=== PATIENT | female | born 1985 | race Caucasian/White ===

== ENCOUNTER 2017-10-24 10:47 | Emergency (ER) | payer MEDICAID, SELFPAY ==
[2017-10-24 11:14] VITALS: BP 122/80; PULSE 84; RESP 20; TEMP 36.8; O2SAT 100; BMI 23.6
--- NOTE | 2017-10-24 11:20 | XR_ITS ---
XR chest 2V HISTORY: ITS.REASON: cough ORDERING PHYSICIAN: Jazmine Lewis PATIENT AGE: 32 years COMPARISON: None available FINDINGS: The cardiomediastinal silhouette and pulmonary vascularity are within normal limits. The lungs are clear without infiltrates, suspicious nodules, or pleural effusions. Surgical clips are present in both apices. No evidence of pneumothorax No acute bony abnormalities. IMPRESSION: No acute finding
--- NOTE | 2017-10-24 11:49 | HMH.EDUTC ---
[facility] – [place] Disposition Clinical Impression: Pleurisy Disposition: Home, Self-Care Condition on Discharge: Good Instructions: DI for Pleurisy, Pleurisy Additional Instructions: Drink plenty of fluids Vaporizer/humidifier may help with cough Take medication as prescribed FOllow up with family doctor Straight to ER if you begin to have any shortness of breath or any life threatening symptoms Prescriptions: Naproxen [Naprosyn 500mg tablet] 500 mg PO BID #20 tab Referrals: Benny Ward MD [Primary Care Provider] - Forms: Work/School Release Time of Disposition: 12:39 Medical Decision Making - Medical Records Medical records reviewed: Yes: I reviewed the patient's medical records. Vital Signs: 10/24/17 11:14 Temperature 98.2 F Temperature Source Oral Pulse Rate [Right] 84 Respiratory Rate 20 Blood Pressure [Right Arm] 122/80 Blood Pressure Mean [Right Arm] 94 Blood Pressure Source [Right Arm] Automatic Cuff Blood Pressure Position [Right Arm] Sitting 02 Sat by Pulse Oximetry 100 Oxygen Delivery Method Room Air - Lab Data Lab results reviewed: Yes: I reviewed the patient's lab results. - Radiology Data #1 Image(s): Chest Image Reviewed: Yes I reviewed the patient's radiology results, Yes I have reviewed radiologist's interpretation Preliminary Findings: Normal/NAD - Jhonathan Inquiry Pt receiving controlled substance: No Jhonathan was queried for this patient: No - Reevaluation(s) Time: 11:56 Reevaluation #1: Contacted xray to have radiologist read xray [facility] [place] HPI - General Stated complaint: back pain when breathing cough Mode of Arrival: Ambulatory Source of Information: Patient Limitations: No Limitations Description of Symptoms (Recalled from Triage Doc. by RN): pains when taking deep breath in back, cough HEENT Symptoms (Recalled from RN notes): No Resp Symptoms (Recalled from RN notes): Yes (cough, painful inspiration) Skin Symptoms (Recalled from RN notes): No MS Symptoms (Recalled from RN notes): No Functional Status (Recalled from RN notes): na - History of Present Illness Provider Complaint: Patient states that she has been having pain in her back area that radiates down her back after she a deep breath State that she has had pleurisy in the past and it feels alot like that did when it started State that she also had a history of 2 lung colapse so she is more prone to infections so she comes in to get checked out - Related Data Home Medications Medication Instructions Recorded Confirmed Escitalopram Oxalate [Lexapro] 20 mg PO DAILY 10/24/17 10/24/17 Ferrous Sulfate [Ferrous Sulfate 325 mg PO DAILY 10/24/17 10/24/17 325mg Tablet] Previous Rx's Medication Instructions Recorded Naproxen [Naprosyn 500mg tablet] 500 mg PO BID #20 tab 10/24/17 Allergies Allergy/AdvReac Type Severity Reaction Status Date / Time NO KNOWN ALLERGIES Allergy Mild Uncoded 10/24/17 11:21 - Worker's Comp Is this a Worker's Comp case?: No Is this an [facility] Worker's Comp?: No Is this a [facility] Worker's Comp?: No [facility] History I have reviewed the patient's past medical history: Yes Medical History: Denies:: Cancer, Diabetes Mellitus Type 1, Diabetes Mellitus Type 2, MRSA Amputation: No Fractures: No - Social History Educational Level: Completed College Smoking Status: Never smoker Alcohol Intake: never - Psychiatric History Expresses thoughts of harming self/others: None Suicide Plan Description: No Plan ROS Obtained: Yes All systems reviewed & no additional complaints - Respiratory Respiratory: Yes cough, No dyspnea, Yes pain with cough, No wheezing Physical Exam - General General appearance: alert, in no apparent distress - Chest Chest inspection: Present: normal inspection, symmetric chest wall rise. Absent: tenderness - Respiratory Respiratory exam: Present: normal lung sounds bilaterally. Absent: respiratory distress, wheezes - Cardiovascular Car
--- NOTE | 2017-10-24 11:53 | ED_ITS ---
[facility] [place] Disposition Clinical Impression: Pleurisy Disposition: Home, Self-Care Condition on Discharge: Good Instructions: DI for Pleurisy, Pleurisy Additional Instructions: Drink plenty of fluids Vaporizer/humidifier may help with cough Take medication as prescribed FOllow up with family doctor Straight to ER if you begin to have any shortness of breath or any life threatening symptoms Prescriptions: Naproxen [Naprosyn 500mg tablet] 500 mg PO BID #20 tab Referrals: Benny Ward MD [Primary Care Provider] - Forms: Work/School Release Time of Disposition: 12:39 Medical Decision Making - Medical Records Medical records reviewed: Yes: I reviewed the patient's medical records. Vital Signs: 10/24/17 11:14 Temperature 98.2 F Temperature Source Oral Pulse Rate [Right] 84 Respiratory Rate 20 Blood Pressure [Right Arm] 122/80 Blood Pressure Mean [Right Arm] 94 Blood Pressure Source [Right Arm] Automatic Cuff Blood Pressure Position [Right Arm] Sitting 02 Sat by Pulse Oximetry 100 Oxygen Delivery Method Room Air - Lab Data Lab results reviewed: Yes: I reviewed the patient's lab results. - Radiology Data #1 Image(s): Chest Image Reviewed: Yes I reviewed the patient's radiology results, Yes I have reviewed radiologist's interpretation Preliminary Findings: Normal/NAD - Jhonathan Inquiry Pt receiving controlled substance: No Jhonathan was queried for this patient: No - Reevaluation(s) Time: 11:56 Reevaluation #1: Contacted xray to have radiologist read xray [facility] [place] HPI - General Stated complaint: back pain when breathing cough Mode of Arrival: Ambulatory Source of Information: Patient Limitations: No Limitations Description of Symptoms (Recalled from Triage Doc. by RN): pains when taking deep breath in back, cough HEENT Symptoms (Recalled from RN notes): No Resp Symptoms (Recalled from RN notes): Yes (cough, painful inspiration) Skin Symptoms (Recalled from RN notes): No MS Symptoms (Recalled from RN notes): No Functional Status (Recalled from RN notes): na - History of Present Illness Provider Complaint: Patient states that she has been having pain in her back area that radiates down her back after she a deep breath State that she has had pleurisy in the past and it feels alot like that did when it started State that she also had a history of 2 lung colapse so she is more prone to infections so she comes in to get checked out - Related Data Home Medications Medication Instructions Recorded Confirmed Escitalopram Oxalate [Lexapro] 20 mg PO DAILY 10/24/17 10/24/17 Ferrous Sulfate [Ferrous Sulfate 325 mg PO DAILY 10/24/17 10/24/17 325mg Tablet] Previous Rx's Medication Instructions Recorded Naproxen [Naprosyn 500mg tablet] 500 mg PO BID #20 tab 10/24/17 Allergies Allergy/AdvReac Type Severity Reaction Status Date / Time NO KNOWN ALLERGIES Allergy Mild Uncoded 10/24/17 11:21 - Worker's Comp Is this a Worker's Comp case?: No Is this an [facility] Worker's Comp?: No Is this a [facility] Worker's Comp?: No [facility] History I have reviewed the patient's past medical history: Yes Medical History: Denies:: Cancer, Diabetes Mellitus Type 1, Diabetes Mellitus Type 2, MRSA Amputation: No Fractures: No - Social History Educational Level: C
[2017-10-24 12:46] VITALS: BP 122/80; PULSE 88; RESP 20; TEMP 36.7; O2SAT 99
== END 2017-10-24 12:47 | disposition home or self-care (01) ==
PROVIDERS: Emergency Provider Nurse Practitioner; Family Provider Family Medicine; PCP Family Medicine
DX: R09.1 Pleurisy (principal); Z79.899 Other long term (current) drug therapy
CPT/HCPCS: 71046; 99202

== ENCOUNTER → 2018-08-06 20:38 | Outpatient (CLI) | payer BC, SELFPAY | PROVIDERS: Visit Provider Nurse Practitioner Family | DX: J02.9 Acute pharyngitis, unspecified (principal) ==

== ENCOUNTER → 2018-12-02 08:14 | Outpatient (CLI) | payer BC, SELFPAY ==
--- NOTE | 2018-12-02 08:21 | US_ITS ---
US abdomen limited History:Recent episode of acute abdominal pain Ordering Physician:Osmany Gabriel MD Patient Age: 33 years Comparison:67, 70, 70 11/21/2018 Findings: Pancreas:Unremarkable. No obvious mass or abnormal fluid collection. No ductal dilatation Liver:No focal liver lesions demonstrated. Homogeneous but scattered slightly increased echogenicity consistent with fatty infiltration. No intrahepatic biliary ductal dilatation evident Right Kidney:Unremarkable. Normal size measuring 12.0 x 4.1 x 6.1 cm and appearing sonographically normal. Gallbladder: The gallbladder is normal size and there are multiple calcified and partially calcified gallstones layering along the wall mixed with biliary sludge. The common bile duct measures 2 mm. Impression: Obvious cholelithiasis with biliary sludge, scattered diffuse areas of fatty filtration of the liver
== END ==
PROVIDERS: PCP Family Medicine; Visit Provider Family Medicine
DX: R10.11 Right upper quadrant pain (principal); K82.9 Disease of gallbladder, unspecified
CPT/HCPCS: 76705

== ENCOUNTER → 2018-12-07 09:58 | Outpatient (CLI) | payer BC, SELFPAY ==
[2018-12-07 10:19] LABS: Basophils % 0.6 % (0.1-2.0); Eosinophils # 0.1 K/mm3 (0.0-0.4); Eosinophils % 1.1 % (0.1-12.0); Hematocrit 37.6 % (37.0-47.0); Hemoglobin 12.6 g/dL (12.2-16.2); Lymphocytes # 2.4 K/mm3 (0.7-4.5); Lymphocytes % 39.2 % (10-50); Mean Corpuscular HGB Conc 33.6 g/dL (31.8-35.4); Mean Corpuscular Hemoglobin 28.7 pg (27.0-31.2); Mean Corpuscular Volume 85.4 fl (81-99); Mean Platelet Volume 7.8 fl (7.4-10.4); Monocytes # 0.3 K/mm3 (0.1-1.0); Monocytes % 4.5 % (1.7-9.3); Neutrophils # 3.4 K/mm3 (1.8-7.8); Neutrophils % 54.7 % (37.0-80.0); Platelet Count 278 K/mm3 (142-424); Red Cell Distribution Width 13.2 % (11.5-17.5); White Blood Count 6.2 K/mm3 (4.8-10.8)
[2018-12-07 11:19] LABS: HCG Qualitative, Serum Negative (Negative)
[2018-12-07 11:27] LABS: Alanine Aminotransferase 21 U/L (12-78); Albumin Level 4.1 gm/dL (3.4-5.0); Alkaline Phosphatase 63 U/L (46-116); Aspartate Amino Transferase 10 U/L (15-37); Bilirubin,Total 0.3 mg/dL (0.2-1.0); Blood Urea Nitrogen 12 mg/dL (7-18); Calcium 9.3 mg/dL (8.5-10.1); Carbon Dioxide 24 mmol/L (21.0-32.0); Chloride 104 mmol/L (98-107); Creatinine,Serum 0.73 mg/dL (0.55-1.02); Estimated Glomerular Filt Rate 91 ml/min (>60); GFR (African American) 110 ML/MIN (>60); Glucose 94 mg/dL (74-106); Sodium 142 mmol/L (136-145); Total Protein,Serum 8.1 gm/dL (6.4-8.2)
== END ==
PROVIDERS: Visit Provider Surgery
DX: K81.9 Cholecystitis, unspecified (principal)
CPT/HCPCS: 36415; 80053; 84703; 85025

== ENCOUNTER 2021-06-19 09:19 | Emergency (ER) | payer OTHER, SELFPAY ==
[2021-06-19 09:39] VITALS: BP 136/89; PULSE 98; RESP 14; TEMP 36.7; O2SAT 96; BMI 28.7
--- NOTE | 2021-06-19 09:52 | HMH.EDUTC ---
[facility] [place] Clinical Impression: Pharyngitis Qualifiers: Pharyngitis/tonsillitis etiology: unspecified etiology Qualified Code(s): J02.9 - Acute pharyngitis, unspecified Disposition: Home, Self-Care Condition on Discharge: Good Instructions: Strep Throat, DI for Pharyngitis/Tonsillopharyngitis -- Adult Additional Instructions: Drink plenty of fluids. Take tylenol or ibuprofen for pain or fever. Take the medications as directed. Follow up with your regular doctor. GO TO THE ER FOR ANY WORSENING SYMPTOMS Quarantine until you know the results of your covid-19 test. If it is positive, the health department should call you and give you further instructions about your length of Quarantine and other things. Notify your school or workplace of your results and follow their instructions regarding return to work/school. Prescriptions: Brompheniramine/Pseudoephed/Dm [Bromfed Dm Cough Syrup] 5 ml PO Q6HP PRN #240 ml PRN Reason: Cough Transmission Status: Received by [id number] predniSONE [Deltasone 10mg tablet] 10 mg PO BID 3 Days #6 tab Transmission Status: Received by [id number] Azithromycin [Z-Yury 250mg Tab*] 250 mg PO UD DOSE PK #6 tab Transmission Status: Received by [facility] Referrals: Benny Ward MD [Primary Care Provider] - Forms: Work/School Release Time of Disposition: 10:13 Medical Decision Making - Medical Records Medical records reviewed: No: I reviewed the patient's medical records. - Jhonathan Inquiry Pt receiving controlled substance: No Vital Signs: 06/19/21 09:39 06/19/21 10:30 Temperature 98.1 F 98.1 F Temperature Source Oral Pulse Rate 98 H Pulse Rate [Left] 98 H Respiratory Rate 14 16 Blood Pressure 136/89 Blood Pressure [Right Arm] 136/89 Blood Pressure Mean [Right Arm] 104 02 Sat by Pulse Oximetry 96 - Lab Data Lab results reviewed: Yes: I reviewed the patient's lab results. Lab Results 06/19/21 09:43: Strep Scn Rapid Clinic Negative 06/19/21 10:25: Chlamy pneumoniae PCR Not detected, Adenovirus (PCR) Not detected, B. pertussis DNA (PCR) Not detected, Coronavirus OC43 (PCR) Not detected, Coronavirus HKU1 (PCR) Not detected, Coronavirus 229E (PCR) Not detected, SARS-CoV-2 (PCR) Not detected, Coronavirus NL63 (PCR) Not detected, Human Metapneumovir PCR Not detected, Influenza A (H1) PCR Not detected, Influ A (H1N1/09) PCR Not detected, Influenza A (H3) PCR Not detected, Influenza Type A (PCR) Not detected, Influenza Type B (PCR) Not detected, M. pneumoniae (PCR) Not detected, Parainfluenza 1 (PCR) Not detected, Parainfluenza 2 (PCR) Not detected, Parainfluenza 3 (PCR) Not detected, Parainfluenza 4 (PCR) Not detected, RSV (PCR) Not detected, Entero/Rhino (PCR) Not detected Orders (Tests/Meds): ORDERS Category Date Time Status Strep Screen Confirmation Stat Micro 06/19/21 09:43 Received [facility] [place]PI - General Stated complaint: possible strep Time Seen by Provider: 06/19/21 09:52 Mode of Arrival: Ambulatory Source of Information: Patient Limitations: No Limitations Description of Symptoms (Recalled from Triage Doc. by RN): pt c/o sore throat and white spots on her throat since yesterday. HEENT Symptoms (Recalled from RN notes): Yes (sore throat) Resp Symptoms (Recalled from RN notes): No Skin Symptoms (Recalled from RN notes): No MS Symptoms (Recalled from RN notes): No Functional Status (Recalled from RN notes): na - History of Present Illness Provider Complaint: She c/o sore throat for the past 2 days. She has blisters and white areas on her throat. - Related Data Home Medications Medication Instructions Recorded Confirmed alprazolam 0.25 mg tablet PO 08/19/19 04/24/21 duloxetine 60 mg capsule,delayed mg PO 08/19/19 04/24/21 release cholecalciferol (vitamin D3) 325 325 mcg PO cap 01/18/21 04/24/21 mcg (13,000 unit) capsule metronidazole 500 mg tablet 500 mg PO tab 04/24/21 04/24/21 Pre
[2021-06-19 10:03] LABS: UTC Strep Screen (Rapid) Negative (Negative)
[2021-06-19 10:30] VITALS: BP 136/89; PULSE 98; RESP 16; TEMP 36.7
[2021-06-19 10:40] LABS: Adenovirus,PCR Not Detected (NotDetected); Bordetella Pertussis Not Detected (NotDetected); Chlamydophila Pneumoniae, PCR Not Detected (NotDetected); Coronavirus 19, PCR Not Detected (NotDetected); Coronavirus 229E Not Detected (NotDetected); Coronavirus NL63 Not Detected (NotDetected); Coronavirus OC43 Not Detected (NotDetected); Coronovirus HKU1,PCR Not Detected (NotDetected); Human Metapneumovirus Not Detected (NotDetected); Influenza A, PCR Not Detected (NotDetected); Influenza AH1, 2009 Not Detected (NotDetected); Influenza AH1, PCR Not Detected (NotDetected); Influenza AH3,PCR Not Detected (NotDetected); Influenza B, PCR Not Detected (NotDetected); Mycoplasma Pneumoniae, PCR Not Detected (NotDetected); Parainfluenza 1, PCR Not Detected (NotDetected); Parainfluenza 2, PCR Not Detected (NotDetected); Parainfluenza 3, PCR Not Detected (NotDetected); Parainfluenza 4, PCR Not Detected (NotDetected); Respiratory Syncytial Virus Not Detected (NotDetected); Rhinovirus/Enterovirus Not Detected (NotDetected)
== END 2021-06-19 10:31 | disposition home or self-care (01) ==
PROVIDERS: Emergency Provider Nurse Practitioner Family; PCP Family Medicine
DX: J03.90 Acute tonsillitis, unspecified (principal); Z20.822 Contact with and (suspected) exposure to COVID-19
CPT/HCPCS: 87581; 87632; 87798; 87880; 99202; C9803; G0463; U0003; U0005

== ENCOUNTER → 2022-03-18 10:22 | Outpatient (CLI) | payer OTHER, SELFPAY ==
--- NOTE | 2022-03-18 10:29 | XR_ITS ---
FINAL REPORT CLINICAL HISTORY: RIGHT SIDED CHEST PAIN h/o spontaneous uri. pneumothorax surgery 20 years ago COMPARISON: November 21, 2018 FINDINGS: Two views of the chest were obtained. The heart size and pulmonary vascularity are within normal limits. The mediastinum is normal. No acute pulmonary abnormality is identified. There is no pneumothorax. Postoperative changes are seen in the upper thorax bilaterally. The bony thorax is intact. IMPRESSION: No active cardiopulmonary disease. Reviewed, Interpreted and Dictated by Dominic Barkley III, MD Transcribed by Piero Escobar Authenticated and [facility]
== END ==
PROVIDERS: PCP Family Medicine; Visit Provider Family Medicine
DX: R07.9 Chest pain, unspecified (principal)
CPT/HCPCS: 71046

== ENCOUNTER 2022-03-29 10:21 | Emergency (ER) | payer OTHER, SELFPAY ==
[2022-03-29 10:44] VITALS: BP 118/82; PULSE 109; RESP 17; TEMP 36.9; O2SAT 97; BMI 24.3
[2022-03-29 10:46] LABS: UTC Strep Screen (Rapid) Negative (Negative)
--- NOTE | 2022-03-29 10:47 | HMH.EDUTC ---
[facility] – [place] Disposition Clinical Impression: Viral syndrome, Exposure to COVID-19 virus Disposition: Home, Self-Care Condition on Discharge: Good Instructions: DI for Viral Syndrome, DI for COVID-19 (Suspected or Confirmed ), Preventing the Spread of Coronavirus Discharge Instructions Additional Instructions: Drink plenty of fluids. Take tylenol or ibuprofen for pain or fever. Take the medications as directed. Follow up with your regular doctor. GO TO THE ER FOR ANY WORSENING SYMPTOMS Quarantine until you know the results of your covid-19 test. Notify your school or workplace of your results and follow their instructions regarding return to work/school. Prescriptions: Ondansetron [Zofran 4mg ODT] 4 mg PO Q8HP PRN #12 tab PRN Reason: Nausea Transmission Status: Received by [facility] Benzonatate [Benzonatate 100mg cap] 100 mg PO TIDP PRN #30 cap PRN Reason: Cough Transmission Status: Received by [facility] Referrals: Osmany Gabriel MD [Primary Care Provider] - Forms: Work/School Release Time of Disposition: 11:02 Medical Decision Making - Medical Records Medical records reviewed: No: I reviewed the patient's medical records. - Jhonathan Inquiry Pt receiving controlled substance: No Vital Signs: 03/29/22 10:44 03/29/22 11:03 Temperature 98.5 F 98.5 F Temperature Source Oral Pulse Rate 89 Pulse Rate [Left] 109 H Respiratory Rate 17 17 Blood Pressure 118/82 Blood Pressure [Right Arm] 118/82 Blood Pressure Mean [Right Arm] 94 02 Sat by Pulse Oximetry 97 - Lab Data Lab Results 03/29/22 10:36: Chlamy pneumoniae PCR Not detected, Adenovirus (PCR) Not detected, B. pertussis DNA (PCR) Not detected, Coronavirus OC43 (PCR) Not detected, Coronavirus HKU1 (PCR) Not detected, Coronavirus 229E (PCR) Not detected, SARS-CoV-2 (PCR) Detected A, Coronavirus NL63 (PCR) Not detected, Human Metapneumovir PCR Not detected, Influenza A (H1) PCR Not detected, Influ A (H1N1/09) PCR Not detected, Influenza A (H3) PCR Not detected, Influenza Type A (PCR) Not detected, Influenza Type B (PCR) Not detected, M. pneumoniae (PCR) Not detected, Parainfluenza 1 (PCR) Not detected, Parainfluenza 2 (PCR) Not detected, Parainfluenza 3 (PCR) Not detected, Parainfluenza 4 (PCR) Not detected, RSV (PCR) Not detected, Entero/Rhino (PCR) Not detected 03/29/22 10:40: Strep Scn Rapid Clinic Negative Orders (Tests/Meds): ORDERS Category Date Time Status Strep Screen Confirmation Stat Micro 03/29/22 10:40 Received [facility] [place] HPI - General Stated complaint: body aches, sore throat Time Seen by Provider: 03/29/22 10:47 Mode of Arrival: Ambulatory Source of Information: Patient Limitations: No Limitations Description of Symptoms (Recalled from Triage Doc. by RN): patient comes in with complaints of body aches, sore throat, cough, runny/stuffy nose. symptoms began yesterday. HEENT Symptoms (Recalled from RN notes): Yes Resp Symptoms (Recalled from RN notes): Yes Skin Symptoms (Recalled from RN notes): No MS Symptoms (Recalled from RN notes): No Functional Status (Recalled from RN notes): n/a - History of Present Illness Provider Complaint: She states that for the past 2 days she has had worsening cough, chest congestion, body aches, chills, and malaise. She has had low grade fever also. - Related Data Home Medications Medication Instructions Recorded Confirmed alprazolam 0.25 mg tablet PO 08/19/19 12/25/21 duloxetine 60 mg capsule,delayed mg PO 08/19/19 12/25/21 release cholecalciferol (vitamin D3) 325 325 mcg PO cap 01/18/21 12/25/21 mcg (13,000 unit) capsule Previous Rx's Medication Instructions Recorded Benzonatate [Benzonatate 100mg 100 mg PO TIDP PRN #30 cap 03/29/22 cap] Ondansetron [Zofran 4mg ODT] 4 mg PO Q8HP PRN #12 tab 03/29/22 Allergies Allergy/AdvReac Type Severity Reaction Status Date / Time No Known Allergies Allergy Verified
[2022-03-29 11:03] VITALS: BP 118/82; PULSE 89; RESP 17; TEMP 36.9
[2022-03-29 11:05] LABS: Adenovirus,PCR Not Detected (NotDetected); Bordetella Pertussis Not Detected (NotDetected); Chlamydophila Pneumoniae, PCR Not Detected (NotDetected); Coronavirus 229E Not Detected (NotDetected); Coronavirus NL63 Not Detected (NotDetected); Coronavirus OC43 Not Detected (NotDetected); Coronovirus HKU1,PCR Not Detected (NotDetected); Human Metapneumovirus Not Detected (NotDetected); Influenza A, PCR Not Detected (NotDetected); Influenza AH1, 2009 Not Detected (NotDetected); Influenza AH1, PCR Not Detected (NotDetected); Influenza AH3,PCR Not Detected (NotDetected); Influenza B, PCR Not Detected (NotDetected); Mycoplasma Pneumoniae, PCR Not Detected (NotDetected); Parainfluenza 1, PCR Not Detected (NotDetected); Parainfluenza 2, PCR Not Detected (NotDetected); Parainfluenza 3, PCR Not Detected (NotDetected); Parainfluenza 4, PCR Not Detected (NotDetected); Respiratory Syncytial Virus Not Detected (NotDetected); Rhinovirus/Enterovirus Not Detected (NotDetected)
[2022-03-29 15:44] LABS: Coronavirus 19, PCR Detected (NotDetected)
== END 2022-03-29 11:04 | disposition home or self-care (01) ==
PROVIDERS: Emergency Provider Nurse Practitioner Family; PCP Family Medicine
DX: U07.1 COVID-19 (principal); B34.9 Viral infection, unspecified; J02.9 Acute pharyngitis, unspecified; R53.82 Chronic fatigue, unspecified; M79.10 Myalgia, unspecified site; F32.A Depression, unspecified; F41.9 Anxiety disorder, unspecified
CPT/HCPCS: 87581; 87632; 87798; 87880; 99213; C9803; G0463; U0003; U0005

== ENCOUNTER 2022-03-30 11:34 | Emergency (ER) | payer OTHER, SELFPAY ==
--- NOTE | 2022-03-30 11:38 | XR_ITS ---
PROCEDURE INFORMATION: Exam: XR Chest Exam date and time: 03/30/2022 11:39 AM Age: 36 years old Clinical indication: Cough and other: Covid positive; Additional info: Covid positive plus cough TECHNIQUE: Imaging protocol: Radiologic exam of the chest. Views: 2 views. COMPARISON: CR XR CHEST 2V 03/18/2022 10:38 AM, 11/04/2016 FINDINGS: Lungs: Postoperative changes in the region of both lung apices stable and unchanged since 11/04/2016. Pleural spaces: Unremarkable. No pleural effusion. No pneumothorax. Heart/Mediastinum: Unremarkable. No cardiomegaly. Bones/joints: Unremarkable. IMPRESSION: No evidence of acute cardiopulmonary disease.
[2022-03-30 11:58] VITALS: BP 144/99; PULSE 119; RESP 16; TEMP 37; O2SAT 99; BMI 24.3
--- NOTE | 2022-03-30 12:11 | HMH.EDUTC ---
[facility] Disposition Clinical Impression: COVID-19 Disposition: Home, Self-Care Condition on Discharge: Good Instructions: DI for COVID-19 (Suspected or Confirmed ), Preventing the Spread of Coronavirus Discharge Instructions Additional Instructions: Take the medications that you have. Follow up with your regular doctor. GO TO THE ER FOR WORSENING SYMTTOMS Referrals: Osmany Gabriel MD [Primary Care Provider] - Time of Disposition: 12:12 Medical Decision Making - Medical Records Medical records reviewed: No: I reviewed the patient's medical records. - Jhonathan Inquiry Pt receiving controlled substance: No Vital Signs: 03/30/22 11:58 03/30/22 12:19 Temperature 98.6 F 98.6 F Temperature Source Oral Pulse Rate 119 H Pulse Rate [Left] 119 H Respiratory Rate 16 16 Blood Pressure 144/99 H Blood Pressure [Right Arm] 144/99 H Blood Pressure Mean [Right Arm] 114 02 Sat by Pulse Oximetry 99 - Radiology Data #1 Image(s): Chest Image Reviewed: Yes I reviewed the patient's radiology image, Yes I have reviewed radiologist's interpretation Preliminary Findings: Normal/NAD, No Infiltrates Seen PROCEDURE INFORMATION: Exam: XR Chest Exam date and time: 03/30/2022 11:39 AM Age: 36 years old Clinical indication: Cough and other: Covid positive; Additional info: Covid positive plus cough TECHNIQUE: Imaging protocol: Radiologic exam of the chest. Views: 2 views. COMPARISON: CR XR CHEST 2V 03/18/2022 10:38 AM, 11/04/2016 FINDINGS: Lungs: Postoperative changes in the region of both lung apices stable and unchanged since 11/04/2016. Pleural spaces: Unremarkable. No pleural effusion. No pneumothorax. Heart/Mediastinum: Unremarkable. No cardiomegaly. Bones/joints: Unremarkable. IMPRESSION: No evidence of acute cardiopulmonary disease. [facility] HPI - General Stated complaint: covid pos, cough Time Seen by Provider: 03/30/22 12:00 Mode of Arrival: Ambulatory Source of Information: Patient Limitations: No Limitations Description of Symptoms (Recalled from Triage Doc. by RN): patient is covid positive. she was seen in [facility] yesterday for a test. patient here for chest xray to rule out pneumonia HEENT Symptoms (Recalled from RN notes): No Resp Symptoms (Recalled from RN notes): Yes Skin Symptoms (Recalled from RN notes): No MS Symptoms (Recalled from RN notes): No Functional Status (Recalled from RN notes): n/a - History of Present Illness Provider Complaint: She tested positive for covid-19 yesterday. Her pcp wanted her to have a chest x-ray today. - Related Data Home Medications Medication Instructions Recorded Confirmed alprazolam 0.25 mg tablet PO 08/19/19 12/25/21 duloxetine 60 mg capsule,delayed mg PO 08/19/19 12/25/21 release cholecalciferol (vitamin D3) 325 325 mcg PO cap 01/18/21 12/25/21 mcg (13,000 unit) capsule Previous Rx's Medication Instructions Recorded Benzonatate [Benzonatate 100mg 100 mg PO TIDP PRN #30 cap 03/29/22 cap] Ondansetron [Zofran 4mg ODT] 4 mg PO Q8HP PRN #12 tab 03/29/22 Allergies Allergy/AdvReac Type Severity Reaction Status Date / Time No Known Allergies Allergy Verified 03/30/22 12:00 - Worker's Comp Is this a Worker's Comp case?: No [facility] History - Hepatitis A Screen Attestation statement:: This patient has been screened for Hepatitis A risk factors. I have reviewed the patient's past medical history: Yes Medical History: Reports:: Anxiety, Depression Denies:: Cancer, Diabetes Mellitus Type 1, Diabetes Mellitus Type 2, Internal Pacemaker, MRSA, Seizures Other Medical History: Denies: Blood Transfusion Reaction Other Surgeries: Yes: Cholecystectomy, , Hernia Repair, Other. No: Pacemaker Amputation: No Fractures: No Comment: Spontaneous pneumothorax, liposuction - Social History Smoking Status: Never smok
[2022-03-30 12:19] VITALS: BP 144/99; PULSE 119; RESP 16; TEMP 37
== END 2022-03-30 12:20 | disposition home or self-care (01) ==
PROVIDERS: Emergency Provider Nurse Practitioner Family; PCP Family Medicine
DX: U07.1 COVID-19 (principal)
CPT/HCPCS: 71046; 99283

== ENCOUNTER 2022-05-30 18:20 | Emergency (ER) | payer OTHER, SELFPAY ==
[2022-05-30 18:21] VITALS: BP 135/92; PULSE 115; RESP 18; TEMP 37.2; O2SAT 98; BMI 25.1
[2022-05-30 19:02] LABS: UTC Strep Screen (Rapid) Negative (Negative)
--- NOTE | 2022-05-30 19:03 | EXP.UTC ---
Discharge Plan Disposition Patient Disposition: Home, Self-Care Condition: Good Prescriptions Prescriptions: New azithromycin [Zithromax] 250 mg tablet 250 mg PO UD DOSE PK Qty: 6 0RF Rx Instructions: Take two (2) tablets today, then one (1) tablet days #2 thru #5 methylprednisolone 4 mg Tablets,Dose Pack 4 mg PO DIRECTED Qty: 21 0RF No Action alprazolam 0.25 mg tablet PO duloxetine 60 mg capsule,delayed release(DR/EC) PO cholecalciferol (vitamin D3) 325 mcg (13,000 unit) capsule 325 mcg PO Label Comments: TAKE 1 CAPSULE BY MOUTH THREE TIMES A WEEK benzonatate 100 MG capsule 100 mg PO TIDP PRN (Reason: Cough) Qty: 30 0RF ondansetron 4 MG tablet,disintegrating 4 mg PO Q8HP PRN (Reason: Nausea) Qty: 12 0RF Referrals Follow up/Referrals: Benny Ward MD [Primary Care Provider] - See instructions Activity Restrictions/Add. Instructions Additional Instructions/Restrictions: Drink plenty of fluids. Take tylenol or ibuprofen for pain or fever. Take the medications as directed. Follow up with your regular doctor. GO TO THE ER FOR ANY WORSENING SYMPTOMS Quarantine until you know the results of your covid-19 test. Notify your school or workplace of your results and follow their instructions regarding return to work/school. Clinical Impressions Clinical Impression: Strep throat Stand Alone Forms Stand Alone Forms: Work/School Release Instructions Patient Instructions: DI for Strep Throat Discharge ED Provider: Bandar Kay [facility] [place] General Stated complaint: sore throat, fever Mode of Arrival: Ambulatory Limitations: No Limitations Time Seen by Provider: 05/30/22 18:50 Description of Symptoms (Recalled from Triage Doc. by RN): SORE THROAT THAT STARTED YESTERDAY HEENT Symptoms (Recalled from RN notes): Yes Resp Symptoms (Recalled from RN notes): No Skin Symptoms (Recalled from RN notes): No MS Symptoms (Recalled from RN notes): No Functional Status (Recalled from RN notes): NA History of Present Illness Provider Complaint: She states that she has had a sore throat for the past 1 day. She has been exposed to multiple children that had strep throat. Related Data Home Medications Medication Instructions Recorded Confirmed alprazolam 0.25 mg tablet PO 08/19/19 12/25/21 duloxetine 60 mg capsule,delayed mg PO 08/19/19 12/25/21 release cholecalciferol (vitamin D3) 325 325 mcg PO 01/18/21 12/25/21 mcg (13,000 unit) capsule Previous Rx's Medication Instructions Recorded benzonatate 100 mg capsule 100 mg PO TIDP PRN Cough #30 caps 03/29/22 ondansetron 4 mg disintegrating 4 mg PO Q8HP PRN Nausea #12 tabs 03/29/22 tablet azithromycin 250 mg tablet 250 mg PO UD DOSE PK #6 tabs 05/30/22 (Zithromax) methylprednisolone 4 mg tablets in 4 mg PO DIRECTED #21 tabs 05/30/22 a dose pack Allergies Allergy/AdvReac Type Severity Reaction Status Date / Time No Known Allergies Allergy Verified 03/30/22 12:00 Worker's Comp Is this a Worker's Comp case?: No PFSH PFSH Social History Smoking Status: Never smoker alcohol intake: never substance use type: denies use current occupational status: employed Travel in the last 8 weeks: None household members: spouse housing: house current occupation: director of [employer] caffeine: Yes ROS Obtained: Yes All systems reviewed & no additional complaints except as documented Constitutional Constitutional: Reports chills and Reports fever(s) Eyes Eyes: Denies eye discharge ENT Ears, Nose, Mouth, and Throat: Reports as per HPI Cardiovascular Cardiovascular: Denies chest pain Respiratory Respiratory: Denies chest congestion and Reports cough Gastrointestinal Gastrointestingal: Reports nausea; Denies abdominal pain, constipation, cramping, diarrhea or vomiting Musculoskeletal Muscul
[2022-05-30 19:37] VITALS: BP 135/92; PULSE 115; RESP 18; TEMP 37.2; O2SAT 98
[2022-05-30 19:45] LABS: Adenovirus,PCR Not Detected (NotDetected); Bordetella Pertussis Not Detected (NotDetected); Chlamydophila Pneumoniae, PCR Not Detected (NotDetected); Coronavirus 19, PCR Not Detected (NotDetected); Coronavirus 229E Not Detected (NotDetected); Coronavirus NL63 Not Detected (NotDetected); Coronavirus OC43 Not Detected (NotDetected); Coronovirus HKU1,PCR Not Detected (NotDetected); Human Metapneumovirus Not Detected (NotDetected); Influenza A, PCR Not Detected (NotDetected); Influenza AH1, 2009 Not Detected (NotDetected); Influenza AH1, PCR Not Detected (NotDetected); Influenza AH3,PCR Not Detected (NotDetected); Influenza B, PCR Not Detected (NotDetected); Mycoplasma Pneumoniae, PCR Not Detected (NotDetected); Parainfluenza 1, PCR Not Detected (NotDetected); Parainfluenza 2, PCR Not Detected (NotDetected); Parainfluenza 3, PCR Not Detected (NotDetected); Parainfluenza 4, PCR Not Detected (NotDetected); Respiratory Syncytial Virus Not Detected (NotDetected); Rhinovirus/Enterovirus Not Detected (NotDetected)
== END 2022-05-30 19:38 | disposition home or self-care (01) ==
PROVIDERS: Emergency Provider Nurse Practitioner Family; PCP Family Medicine
DX: J02.0 Streptococcal pharyngitis (principal)
CPT/HCPCS: 87581; 87632; 87798; 87880; 99212; C9803; G0463; U0003; U0005

== ENCOUNTER → 2022-06-08 10:34 | Outpatient (CLI) | payer OTHER, SELFPAY | PROVIDERS: PCP Family Medicine; Visit Provider Nurse Practitioner Obstetrics & Gynecology | DX: S30.814A Abrasion of vagina and vulva, initial encounter (principal) | CPT/HCPCS: 36415; 86695; 86790 ==

== ENCOUNTER 2022-11-10 10:22 | Emergency (ER) | payer OTHER, SELFPAY ==
[2022-11-10 10:45] VITALS: BP 141/99; PULSE 104; RESP 20; TEMP 37; O2SAT 98; BMI 26.4
--- NOTE | 2022-11-10 11:03 | EXP.UTC ---
Discharge Plan Disposition Patient Disposition: Home, Self-Care Condition: Good Prescriptions Prescriptions: New amoxicillin [amoxicillin] 500 mg tablet 500 mg PO TID 10 Days Qty: 30 0RF kxhjlherzozigxj-amksmleik-QV [Bromfed DM] 2-30-10 mg/5 mL Syrup 5 ml PO Q6H PRN (Reason: Cough) Qty: 240 0RF prednisone 10 mg tablet 10 mg PO BID 3 Days Qty: 6 0RF No Action alprazolam 0.25 mg tablet 0.25 mg PO PRN cholecalciferol (vitamin D3) 325 mcg (13,000 unit) capsule 325 mcg PO DAILY Label Comments: TAKE 1 CAPSULE BY MOUTH THREE TIMES A WEEK duloxetine 60 mg capsule,delayed release(DR/EC) 120 mg PO DAILY Label Comments: TAKE 2 CAPSULES BY MOUTH ONCE DAILY Referrals Follow up/Referrals: Benny Ward MD [Primary Care Provider] - See instructions Activity Restrictions/Add. Instructions Additional Instructions/Restrictions: Drink plenty of fluids. Take tylenol or ibuprofen for pain or fever. Take the medications as directed. Follow up with your regular doctor. GO TO THE ER FOR ANY WORSENING SYMPTOMS Throw your tooth brush away and get a new one. Clinical Impressions Clinical Impression: Strep throat Stand Alone Forms Stand Alone Forms: Work/School Release Instructions Patient Instructions: DI for Strep Throat Discharge ED Provider: Bandar Kay [facility] General Stated complaint: sore throat, h/a, chills Time Seen by Provider: 11/10/22 11:01 Related Data Home Medications Medication Instructions Recorded Confirmed cholecalciferol (vitamin D3) 325 325 mcg PO DAILY . 01/18/21 11/10/22 mcg (13,000 unit) capsule alprazolam 0.25 mg tablet 0.25 mg PO PRN 06/07/22 09/10/22 duloxetine 60 mg capsule,delayed 120 mg PO DAILY Anxiety 11/10/22 11/10/22 release Previous Rx's Medication Instructions Recorded amoxicillin 500 mg tablet 500 mg PO TID 10 days #30 tabs 11/10/22 cojxttibyzeecsj-klzcjpqgttdltpt-XR 5 ml PO Q6H PRN Cough #240 mL 11/10/22 2 mg-30 mg-10 mg/5 mL oral syrup (Bromfed DM) prednisone 10 mg tablet 10 mg PO BID 3 days #6 tabs 11/10/22 Allergies Allergy/AdvReac Type Severity Reaction Status Date / Time No Known Allergies Allergy Verified 11/10/22 11:07 [facility] Disclaimer: The information contained in this section may have been updated after the patient was seen, as this information can be updated by other users. 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: Yes ROS Obtained: Yes All systems reviewed & no additional complaints except as documented Constitutional Constitutional: Reports chills and Reports fever(s) Eyes Eyes: Denies eye discharge ENT Ears, Nose, Mouth, and Throat: Reports as per HPI Cardiovascular Cardiovascular: Denies chest pain Respiratory Respiratory: Denies chest congestion and Reports cough Gastrointestinal Gastrointestingal: Reports nausea; Denies abdominal pain, constipation, cramping, diarrhea or vomiting Musculoskeletal Musculoskeletal: Denies arthralgias Integumentary/Breasts Skin/Breast: Denies rash Neurologic Neurologic: Denies paresthesias Physical Exam General General appearance: alert and in no apparent distress Head Head exam: atraumatic, normocephalic and normal inspection Eye Eye exam: Present normal appearance, PERRL and EOMI ENT ENT exam: Present mucous membranes moist and normal external ear exam Expanded EN
[2022-11-10 11:12] LABS: UTC Influenza A Antigen Negative (Negative); UTC Influenza B Antigen Negative (Negative)
[2022-11-10 11:13] LABS: UTC Strep Screen (Rapid) Positive (Negative)
[2022-11-10 12:09] VITALS: BP 141/99; PULSE 104; RESP 20; TEMP 37; O2SAT 98
== END 2022-11-10 12:09 | disposition home or self-care (01) ==
PROVIDERS: Emergency Provider Nurse Practitioner Family; PCP Family Medicine
DX: J02.0 Streptococcal pharyngitis (principal); R51.9 Headache, unspecified
CPT/HCPCS: 87804; 87880; 99212; 99214; G0463

== ENCOUNTER 2023-03-23 03:06 | Emergency (ER) | payer OTHER, SELFPAY ==
[2023-03-23 03:07] VITALS: BP 163/98; PULSE 107; RESP 16; TEMP 36.9; O2SAT 99; BMI 25.8
--- NOTE | 2023-03-23 03:17 | PC.NURSE ---
Dr. Richter at [facility]
[2023-03-23 03:26] LABS: Urine Pregnancy, HCG Qual. Negative (Negative)
--- NOTE | 2023-03-23 03:30 | HMH.EDGENADL ---
Discharge Plan Disposition Patient Disposition: Home, Self-Care Condition: Good Prescriptions Prescriptions: No Action alprazolam 0.25 mg tablet 0.25 mg PO PRN cholecalciferol (vitamin D3) 325 mcg (13,000 unit) capsule 325 mcg PO DAILY Patient Comments: TAKE 1 CAPSULE BY MOUTH THREE TIMES A WEEK L norgest/e.estradiol-e.estrad [Seasonique] 0.15 mg-30 mcg (84)/10 mcg (7) tablets,dose pack,3 month 1 tab PO DAILY Qty: 84 3RF nitrofurantoin monohyd/m-cryst [Macrobid] 100 mg capsule 100 mg PO BID Qty: 20 0RF Rx Instructions: must administer with a meal/food duloxetine 60 mg capsule,delayed release(DR/EC) 120 mg PO DAILY Patient Comments: TAKE 2 CAPSULES BY MOUTH ONCE DAILY Referrals Follow up/Referrals: Benny Ward MD [Primary Care Provider] - See instructions Activity Restrictions/Add. Instructions Additional Instructions/Restrictions: You were evaluated in the emergency department today. Please follow-up closely with your improvement director. They may recommend a medication change if you continue to have bleeding. This can be a normal side effect of starting control or changing control. Take ibuprofen as needed for dysfunctional bleeding and cramping every 6-8 hours. This can help slow the bleeding and cramping. Return to the emergency department for any new or worsening symptoms. Clinical Impressions Clinical Impression: Abnormal vaginal bleeding, Decidual cast Instructions Patient Instructions: DI for Vaginal Bleeding Discharge ED Provider: Sue Richter General Adult HPI General Chief complaint: Vaginal Bleeding Stated complaint: clotting blood Time Seen by Provider: 03/23/23 03:09 Mode of Arrival: Ambulatory Source of Information: Patient Limitations: No Limitations Description of Symptoms (Recalled from ER Triage Doc. by RN): pt states was put on control by lobster man 5 weeks ago to help with horomes. tonight pt when to the bathroom and when to wipe and had a blood clot. pt states it is time for her period . pt denies any abd pain or n/v/d. History of Present Illness HPI narrative: This patient is a 37-year-old female with a history of tubal ligation presenting to the emergency department with concern for passage of a large clot vaginally tonight. Patient reports that she was started on a new control pill approximately 5 weeks ago to help with hormone regulation because she was suffering from severe depression and mood changes with menstrual cycles. She states she had been having some cramping and bleeding for the last few days, but tonight she passed a very large clot. She is that she is currently supposed to be on her period, but her control pills are 3-month pack with placebo week at the very end of the 3-month period. She has not yet to the placebo week, as she is just finished her first month. She denies any fevers, chills, lightheadedness, chest pain, shortness of breath, lower abdominal pain, change in bowel movements, or other concerns. Related Data Home Medications Medication Instructions Recorded Confirmed cholecalciferol (vitamin D3) 325 325 mcg PO DAILY . 01/18/21 02/10/23 mcg (13,000 unit) capsule alprazolam 0.25 mg tablet 0.25 mg PO PRN 06/07/22 02/10/23 duloxetine 60 mg capsule,delayed 120 mg PO DAILY Anxiety 11/10/22 02/10/23 release Previous Rx's Medication Instructions Recorded L norgest/E estradiol-E estrad 1 tab PO DAILY #84 tabs 02/10/23 0.15 mg-30 mcg (84)/10 mcg(7) tabs,3mos (Seasonique) nitrofurantoin 100 mg PO BID #20 caps 03/12/23 monohydrate/macrocrystals 100 mg capsule (Macrobid) Allergies Allergy/AdvReac Type Severity Reaction Status Date / Time No Known Allergies Allergy Verified 02/10/23 13:23 [facility] Disclaimer: The information contained in this section may have been updated after the patient was seen, as this information can be updated by other users. Surgic
[2023-03-23 03:36] LABS: Basophils % 0.4 % (0.1-2.0); Eosinophils # 0.2 K/mm3 (0.0-0.4); Eosinophils % 2.1 % (0.1-12.0); Hematocrit 36.5 % (37.0-47.0); Hemoglobin 11.8 g/dL (12.2-16.2); Lymphocytes # 3.1 K/mm3 (0.7-4.5); Lymphocytes % 32.4 % (10-50); Mean Corpuscular HGB Conc 32.3 g/dL (31.8-35.4); Mean Corpuscular Hemoglobin 27.9 pg (27.0-31.2); Mean Corpuscular Volume 86.4 fl (81-99); Mean Platelet Volume 7.8 fl (7.4-10.4); Monocytes # 0.4 K/mm3 (0.1-1.0); Monocytes % 4.2 % (1.7-9.3); Neutrophils # 5.8 K/mm3 (1.8-7.8); Neutrophils % 60.9 % (37.0-80.0); Platelet Count 353 K/mm3 (142-424); Red Blood Count 4.23 M/mm3 (4.20-5.40); Red Cell Distribution Width 14.7 % (11.5-17.5); White Blood Count 9.5 K/mm3 (4.8-10.8)
[2023-03-23 03:40] LABS: Chloride 107 mmol/L (98-107)
[2023-03-23 03:41] LABS: Sodium 140 mmol/L (136-145)
[2023-03-23 03:44] LABS: Blood Urea Nitrogen 8 mg/dl (7-17); Calcium 9.1 mg/dl (8.4-10.2); Carbon Dioxide 21 mmol/L (22.0-30.0); Creatinine Clearance Estimated 139 mL/min (50-200); Estimated Glomerular Filt Rate 93 ml/min (>60); GFR (African American) 113 ML/MIN (>60); Glucose 110 mg/dl (74-100)
[2023-03-23 03:46] VITALS: BP 145/72; PULSE 89; RESP 16; TEMP 36.9; O2SAT 99
== END 2023-03-23 03:54 | disposition home or self-care (01) ==
PROVIDERS: Emergency Provider Emergency Medicine; PCP Family Medicine
DX: N93.9 Abnormal uterine and vaginal bleeding, unspecified (principal); F32.2 Major depressive disorder, single episode, severe without psychotic features
CPT/HCPCS: 80048; 81025; 85025; 99284

== ENCOUNTER → 2023-04-11 13:52 | Outpatient (CLI) | payer OTHER, SELFPAY ==
--- NOTE | 2023-04-11 13:52 | US_ITS ---
PROCEDURE: US TRANSVAGINAL CLINICAL INDICATION: abnormal uterine and vaginal bleeding COMPARISON: No exams were available for comparison FINDINGS: Transvaginal sonographic images of the pelvis were obtained UTERUS: 9.4 cm x 5.0 cmx 4.2 cm with a combined endometrial thickness of 17mm. There is section scar. LEFT OVARY: 9 cmxx1.8cm Within the left ovary is follicle measuring 1.6 cm x 1.4 cm x 1.5 cm RIGHT OVARY: 3.4 cmx 2.1 cmx2.3 cm with a volume of 8.6ml. There is a dominant follicle measuring 1.0 cm x 1.2 cm x 1.1 cm There are several follicles and the ovary has a polycystic appearance. Both ovaries are seen and appear normal. Doppler flow to both ovaries are seen. There is no fluid in the cul-de-sac. IMPRESSION: 1. Anteverted uterus upper limits of normal size. 2. The endometrium is thickened at 17 mm. 3. Both ovaries are seen and appear normal. They both have small follicles. The right ovary has a polycystic appearance. Dictated by: Gerald Smiley MD 04/13/2023 08:24 Gerald Smiley MD in OV 04/13/2023 08:24
== END ==
PROVIDERS: PCP Family Medicine; Visit Provider Nurse Practitioner Obstetrics & Gynecology
DX: N93.9 Abnormal uterine and vaginal bleeding, unspecified (principal)
CPT/HCPCS: 76830

== ENCOUNTER 2023-08-20 10:20 | Emergency (ER) | payer OTHER, SELFPAY ==
[2023-08-20 10:30] VITALS: BP 141/90; PULSE 89; RESP 19; TEMP 37.3; O2SAT 100; BMI 28.0
--- NOTE | 2023-08-20 10:35 | EXP.UTC ---
Discharge Plan Disposition Patient Disposition: Home, Self-Care Condition: Good Prescriptions Prescriptions: New prednisone 10 mg tablet 10 mg PO BID 5 Days Qty: 10 0RF amoxicillin [amoxicillin] 875 mg tablet 875 mg PO Q12H Qty: 20 0RF No Action cholecalciferol (vitamin D3) 325 mcg (13,000 unit) capsule 325 mcg PO DAILY Patient Comments: TAKE 1 CAPSULE BY MOUTH THREE TIMES A WEEK amlodipine 2.5 mg tablet 2.5 mg PO DAILY Patient Comments: TAKE 1 TABLET BY MOUTH ONCE DAILY FOR 90 DAYS duloxetine 60 mg capsule,delayed release(DR/EC) 120 mg PO DAILY Patient Comments: TAKE 2 CAPSULES BY MOUTH ONCE DAILY albuterol sulfate 90 mcg/actuation HFA aerosol inhaler See Rx Instructions .ROUTE .COMPLEX Patient Comments: INHALE 1 PUFF BY MOUTH EVERY 4 HOURS NEEDED Rx Instructions: INHALE 1 PUFF BY MOUTH EVERY 4 HOURS NEEDED ferrous sulfate 325 mg (65 mg iron) tablet,delayed release (DR/EC) 325 mg PO DAILY Patient Comments: TAKE 1 TABLET BY MOUTH ONCE DAILY Referrals Follow up/Referrals: Benny Ward MD [Primary Care Provider] - See instructions Activity Restrictions/Add. Instructions Additional Instructions/Restrictions: Drink plenty of fluids. Take tylenol or ibuprofen for pain or fever. Take the medications as directed. Follow up with your regular doctor. GO TO THE ER FOR ANY WORSENING SYMPTOMS Clinical Impressions Clinical Impression: Pharyngitis Stand Alone Forms Stand Alone Forms: Work/School Release Instructions Patient Instructions: Strep Throat, DI for Strep Throat Discharge ED Provider: Bandar Kay [facility] General Stated complaint: sore throat headache Time Seen by Provider: 08/20/23 10:35 History of Present Illness Provider Complaint: She states that for the past 1 day she has had sore throat, chills, and body aches. Her son was diagnosed with strep throat 3 days ago. Related Data Home Medications Medication Instructions Recorded Confirmed cholecalciferol (vitamin D3) 325 325 mcg PO DAILY . 01/18/21 08/20/23 mcg (13,000 unit) capsule duloxetine 60 mg capsule,delayed 120 mg PO DAILY Anxiety 11/10/22 08/20/23 release amlodipine 2.5 mg tablet 2.5 mg PO DAILY 04/21/23 08/20/23 albuterol sulfate 90 mcg/actuation See Rx Instructions .Route .COMPLEX 08/20/23 08/20/23 aerosol inhaler ferrous sulfate 325 mg (65 mg 325 mg PO DAILY 08/20/23 08/20/23 iron) tablet,delayed release Previous Rx's Medication Instructions Recorded amoxicillin 875 mg tablet 875 mg PO Q12H #20 tabs 08/20/23 prednisone 10 mg tablet 10 mg PO BID 5 days #10 tabs 08/20/23 Allergies Allergy/AdvReac Type Severity Reaction Status Date / Time No Known Allergies Allergy Verified 08/20/23 10:51 [facility] Disclaimer: The information contained in this section may have been updated after the patient was seen, as this information can be updated by other users. 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
[2023-08-20 10:56] LABS: UTC Strep Screen (Rapid) Negative (Negative)
[2023-08-20 11:05] VITALS: BP 141/90; PULSE 89; RESP 19; TEMP 37.3; O2SAT 100
== END 2023-08-20 10:55 | disposition home or self-care (01) ==
PROVIDERS: Emergency Provider Nurse Practitioner Family; PCP Family Medicine
DX: J02.9 Acute pharyngitis, unspecified (principal); R51.9 Headache, unspecified; R68.83 Chills (without fever); M79.18 Myalgia, other site; Z20.818 Contact with and (suspected) exposure to other bacterial communicable diseases
CPT/HCPCS: 87880; 99212; 99214; G0463

== ENCOUNTER 2023-09-02 09:12 | Outpatient (CLI) | payer OTHER, SELFPAY ==
[2023-09-02 09:33] LABS: Basophils % 0.4 % (0.1-2.0); Eosinophils # 0.1 K/mm3 (0.0-0.4); Eosinophils % 0.6 % (0.1-12.0); Hematocrit 40.5 % (37.0-47.0); Hemoglobin 13.2 g/dL (12.2-16.2); Lymphocytes # 2.4 K/mm3 (0.7-4.5); Lymphocytes % 26.9 % (10-50); Mean Corpuscular HGB Conc 32.6 g/dL (31.8-35.4); Mean Corpuscular Hemoglobin 28.1 pg (27.0-31.2); Mean Corpuscular Volume 86.3 fl (81-99); Mean Platelet Volume 8.6 fl (7.4-10.4); Monocytes # 0.4 K/mm3 (0.1-1.0); Neutrophils # 6.1 K/mm3 (1.8-7.8); Neutrophils % 68.1 % (37.0-80.0); Platelet Count 336 K/mm3 (142-424); Red Blood Count 4.69 M/mm3 (4.20-5.40); Red Cell Distribution Width 14.9 % (11.5-17.5); White Blood Count 8.9 K/mm3 (4.8-10.8)
[2023-09-02 09:56] LABS: Alanine Aminotransferase 18 U/L (12-78); Albumin Level 4.4 g/dl (3.5-5.0); Albumin/Globulin Ratio 1.4 (1.1-1.8); Alkaline Phosphatase 77 U/L (38-126); Anion Gap 10.2 mEq/L (5-15); Aspartate Amino Transferase 22 U/L (14-36); Bilirubin,Total 0.4 mg/dl (0.2-1.3); Blood Urea Nitrogen 9 mg/dl (7-17); Calcium 9.2 mg/dl (8.4-10.2); Carbon Dioxide 26 mmol/L (22.0-30.0); Chloride 104 mmol/L (98-107); Estimated Glomerular Filt Rate 93 ml/min (>60); GFR (African American) 112 ML/MIN (>60); Globulin 3.1 g/dL (1.3-3.2); Glucose 99 mg/dl (74-100); Potassium 4.2 mmoL/L (3.5-5.1); Sodium 136 mmol/L (136-145); Total Protein,Serum 7.5 g/dl (6.3-8.2)
[2023-09-02 10:37] LABS: HCG,Quantitative < 2 mIU/ml (0-5.42)
== END 2023-09-02 23:59 ==
LOC: LAB 09:13
PROVIDERS: PCP Family Medicine; Visit Provider Nurse Practitioner Obstetrics & Gynecology
DX: N92.0 Excessive and frequent menstruation with regular cycle (principal)
CPT/HCPCS: 36415; 80053; 84702; 85025

== ENCOUNTER 2023-09-04 06:05 | Day surgery (SDC) | payer OTHER, SELFPAY ==
[2023-09-02 13:48] VITALS: BMI 25.7
[2023-09-04] VITALS (10 sets, daily range): BP systolic 126–153; BP diastolic 72–97; PULSE 81–97; RESP 12–18; TEMP 36.4–36.8; O2SAT 98–100
[2023-09-04] MEDS: LACTATED RINGERS 1000ML 1,000 ML 100 ML IV (06:30)
--- NOTE | 2023-09-04 06:59 | EXP.ANES.CKL ---
[facility] Disclaimer: The information contained in this section may have been updated after the patient was seen, as this information can be updated by other users. 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 [facility] Anesthesia Checklist Patient Identification Patient Identification: Arm Band, Family and Verbal (Name & ) Structural Data Admitted From: Home Planned Operative Procedure/s: Hysteroscopy; D&C; Novasure endometrial ablation Consent for Planned Operative Procedure(s) Verified: Yes Verified Documents: Surgical Consent and History and Physical NPO Status Verified Time NPO: 20:30 Chart Verification Results Verified: CBC, BMP, Chest Xray and HCG Additional verifications Patient : No Anesthesia Reactions: No Hx Blood Transfusions: No Blood Transfusion Reaction: No Cephalosporin Allergy: No Cardiovascular Assessment Heart Sounds: S1 & S2 Pulse Rhythm: Irregular Peripheral Edema: No Airway Assessment Mallampati Score:: Class I C-Spine Mobility Assessed: Yes (FROM) TMJ Mobility Assessed: Yes Dentition: Good Dentition (Nothing loose per pt.) Neurological Assessment Level of Consciousness: Awake, Alert, Appropriate and Follows Commands Hx Seizures: No Numbness or tingling in extremities: No Anesthesia Plan Anesthesia Risk discussed: Yes Anesthesia Plan: Verified ASA Class: III Anesthesia Type: General
[2023-09-04] MEDS: CEFAZOLIN SODIUM 1 GM in 0.9 % SODIUM CHLORIDE 50 ML IV (07:35)
[2023-09-04] MEDS: SODIUM CHLORIDE IRRIG SOLUTION 3,000 ML 100 ML IR (07:40)
[2023-09-04] MEDS: ROPIVACAINE 0.5% 30ML VIAL 150 MG (07:48)
--- NOTE | 2023-09-04 08:03 | P.PNANES_ITS ---
[facility] Anesthesia Record Part I Anesthesia Record I Intake, IV Amount: 450 Hydration: Adequate Estimated blood loss (mL): 50 Urine output (mL): 0 Blood Products used (#): none Blood Pressure: 153/90 SaO2: 100 Pulse Rate: 94 Airway Patency: Patent Respiratory Rate: 12 Temperature: 97.6 F Patient is:: Awake (Talking), Drowsy and Stable Stable to PACU at:: 08:03
--- NOTE | 2023-09-04 08:09 | EXP.OP.NOTE ---
Date of procedure: 09/04/23 Pre-op Diagnosis:: Menorrhagia, Post-op Diagnosis:: Menorrhagia, Procedure performed:: Hysteroscopy, dilation and curettage, pressure ablation at Surgeon:: Gerald Smiley MD RECRUITING COORDINATOR:: Other (Catalina Cage) Anesthesia: LMA Estimated blood loss (mL): 50 Clinical Note:: She is a 38-year-old lady who complains of extremely heavy periods. Ultrasound was essentially normal. After having discussed the risk and benefits we did perform a hysteroscopy, D&C and NovaSure ablation. Operative findings:: She had an anteverted somewhat bulky uterus. The uterus sounded to 9 cm. The endometrial cavity was 6.5 cm long and 4.0 cm wide Operative note:: She was taken to the operating room where LMA anesthesia was found be adequate. She was prepped and draped in the normal sterile fashion in the lithotomy position. A weighted speculum was placed in the vagina and the anterior lip of the cervix was grasped with a tenaculum. The cervix was then dilated to approximately 6 mm. I then inserted a hysteroscope into the uterine cavity and the findings were as previously dictated. I then performed a gentle curettage with a medium curette. I then sounded the uterus and determine the length of the uterus. I then inserted the NovaSure device and determine the width of the endometrial cavity. The length of the cavity was 6.5 cm and the width was 4.0 cm. This was placed into the NovaSure device. I then ran the device through its program. I further inspected the endometrial cavity and was found to be completely charred. I then injected 30 cc of 0.5% ropivacaine at the 3:00, 5:00, 7:00, and 9:00 positions of the cervix. She tolerated procedure well and was taken to the recovery room in excellent condition. All sponge and instrument counts were correct. The estimated blood loss was less than 50 cc. Condition: stable Disposition: PACU Specimens:: Endometrial curettings Complications:: None
--- NOTE | 2023-09-04 08:18 | SUR.PHASEII ---
Clinic Pharmacy notified pt is in recovery @ this time.
--- NOTE | 2023-09-04 10:52 | P.PNANES_ITS ---
[facility] Anesthesia Record Part II Anesthesia Record Part II Discharge Time: 08:28 Destination: Surgical Day Care (OP Surgery) PACU nurse assessment reviewed?: Yes Patient Condition:: Good Anesthesia Complications:: None Swallowing reflex intact?: Yes Airway Patency: Patent Cyanosis?: No Blood Pressure: 132/79 SaO2: 99 Respiratory Rate: 17 Pulse Rate: 88 Temperature: 98.2 F Mental Status: Alert & Oriented Pain level:: 0 Nausea and/or vomitting:: None Intake, IV Amount: 0 Hydration: Adequate
== END 2023-09-04 08:59 | disposition home or self-care (01) ==
PROVIDERS: PCP Family Medicine; Visit Provider Nurse Practitioner Obstetrics & Gynecology
PROC: 0U5B8ZZ Destruction of Endometrium, Via Natural or Artificial Opening Endoscopic (ICD-10-PCS; CPT 58563; principal; 2023-09-04 07:30)
DX: N92.0 Excessive and frequent menstruation with regular cycle (principal); N84.0 Polyp of corpus uteri
CPT/HCPCS: 58563; 96374; J2405

== ENCOUNTER 2023-10-16 08:22 | Outpatient (CLI) | payer OTHER, SELFPAY ==
--- NOTE | 2023-10-16 08:22 | MM_ITS ---
PROCEDURE INFORMATION: Exam: Bilateral Screening 3D Mammography Exam date and time: 10/16/2023 8:17 AM Age: 38 years old Clinical indication: Screening examination TECHNIQUE: Imaging protocol: Bilateral Screening tomosynthesis and 2D mammography including computer-aided detection (CAD) when performed. COMPARISON: No relevant prior studies available. Baseline FINDINGS: MAMMOGRAPHY: Breast composition: The breasts are heterogeneously dense, which may obscure small masses. Mass: None. Architectural distortion: None. Calcifications: No suspicious calcifications. Asymmetric density: None. Skin thickening: None. Axillary adenopathy: None. IMPRESSION: No mammographic evidence of malignancy. Annual screening is recommended unless otherwise clinically indicated. ASSESSMENT: BI-RADS Category 1: Negative
== END 2023-10-16 23:59 ==
LOC: RAD 08:22
PROVIDERS: PCP Family Medicine; Visit Provider Nurse Practitioner Obstetrics & Gynecology
DX: Z12.31 Encounter for screening mammogram for malignant neoplasm of breast (principal)
CPT/HCPCS: 77063; 77067

== ENCOUNTER 2023-11-01 07:59 | Emergency (ER) | payer OTHER, SELFPAY ==
[2023-11-01 08:10] VITALS: BP 138/81; PULSE 91; RESP 18; TEMP 36.8; O2SAT 98; BMI 27.2
[2023-11-01 08:22] VITALS: BP 138/81; PULSE 91; RESP 18; TEMP 36.8; O2SAT 98
--- NOTE | 2023-11-01 08:23 | EXP.UTC ---
Discharge Plan Disposition Patient Disposition: Home, Self-Care Condition: Good Prescriptions Prescriptions: New sulfamethoxazole-trimethoprim [Bactrim DS] 800-160 mg tablet 1 tab PO Q12H Qty: 20 0RF mupirocin 2 % ointment 1 applic topical BID Qty: 15 0RF No Action escitalopram oxalate [Lexapro] 5 mg Tablet 5 mg PO DAILY cholecalciferol (vitamin D3) 250 mcg (10,000 unit) capsule 250 mcg PO DAILY Patient Comments: TAKE 1 CAPSULE BY MOUTH THREE TIMES A WEEK ferrous sulfate 325 mg (65 mg iron) tablet,delayed release (DR/EC) 325 mg PO DAILY Patient Comments: TAKE 1 TABLET BY MOUTH ONCE DAILY Referrals Follow up/Referrals: Osmany Gabriel MD [Primary Care Provider] - See instructions Clinical Impressions Clinical Impression: Abscess Instructions Patient Instructions: DI for Skin Abscess Discharge ED Provider: Jazmine Lewis [facility] HPI General Stated complaint: spider bite right leg Mode of Arrival: Ambulatory Source of Information: Patient Limitations: No Limitations Time Seen by Provider: 11/01/23 08:24 Description of Symptoms (Recalled from Triage Doc. by RN): PATIENT C/O POSSIBLE SPIDER BITE TO RIGHT THIGH SINCE FRIDAY. SHE REPORTS AREA BEING RED, SWOLLEN AND PAINFUL HEENT Symptoms (Recalled from RN notes): No Resp Symptoms (Recalled from RN notes): No Skin Symptoms (Recalled from RN notes): Yes MS Symptoms (Recalled from RN notes): No Functional Status (Recalled from RN notes): WNL History of Present Illness Provider Complaint: 38 yr old female presents for abscess to rt thigh since . Related Data Home Medications Medication Instructions Recorded Confirmed ferrous sulfate 325 mg (65 mg 325 mg PO DAILY 08/20/23 11/01/23 iron) tablet,delayed release cholecalciferol (vitamin D3) 250 250 mcg PO DAILY 11/01/23 11/01/23 mcg (10,000 unit) capsule escitalopram oxalate 5 mg tablet 5 mg PO DAILY 11/01/23 11/01/23 (Lexapro) Previous Rx's Medication Instructions Recorded mupirocin 2 % topical ointment 1 applic topical BID #15 grams 11/01/23 sulfamethoxazole 800 1 tab PO Q12H #20 tabs 11/01/23 mg-trimethoprim 160 mg tablet (Bactrim DS) Allergies Allergy/AdvReac Type Severity Reaction Status Date / Time No Known Allergies Allergy Verified 09/30/23 09:59 Worker's Comp Is this a Worker's Comp case?: No [facility] Disclaimer: The information contained in this section may have been updated after the patient was seen, as this information can be updated by other users. Medical History , [employer]) Abnormal vaginal bleeding History of anemia Hypertension Pneumothorax Uterine hypertrophy Surgical History , [employer]) H/O tubal ligation History of section History of cholecystectomy Family History , [employer]) Substance abuse Alcoholism Cancer Thyroid disorder Social History , [employer]) Smoking Status: Never smoker alcohol intake: never substance use type: denies use current occupational status: employed Travel in the last 8 weeks: None housing: house current occupation: director of [employer] caffeine: Yes ROS Obtained: Yes All systems reviewed & no additional complaints except as documented Constitutional Constitutional: Reports system reviewed and no additional complaints, except as documented Eyes Eyes: Reports system reviewed and no additional complaints, except as documented ENT Ears, Nose, Mouth, and Throat: Reports system reviewed and no additional complaints, except as documented Cardiovascular Cardiovascular: Reports system reviewed and no additional complaints, except as documented Respiratory Respiratory: Reports system reviewed and no additional complaints, except as documented Integumentary/Breasts Skin/Breast: Reports system reviewed and no additional complaints, except as documented, Reports as per HPI and Reports wounds (rt thigh) Physical Exam General General appearance: alert and in no apparent distress Head Head exam: atraumatic Eye Eye exam: Present normal appearance and PERRL ENT ENT exam: Present normal exam Respiratory Respiratory exam: Present normal lung sounds bilaterally Cardiovascular Cardiovascular exam: Present regular rate and normal rhythm Neurological Exam Neurological exam: Present alert and oriented X3 Skin Skin exam: Present warm and other Expanded Skin Exam Body image: 1. red indurated,swollen Medical Decision Making Medical Records Medical records reviewed: Yes I reviewed the patient's medical records. Jhonathan Inquiry Pt receiving controlled substance: No Jhonathan was queried for this patient: No Vital Signs: 11/01/23 08:10 11/01/23 08:22 Temperature 98.3 F 98.3 F Temperature Source Oral Pulse Rate 91 H Pulse Rate [Left Brachial] 91 H Respiratory Rate 18 18 Blood Pressure 138/81 Blood Pressure [Left Arm] 138/81 Blood Pressure Mean [Left Arm] 100 Blood Pressure Source [Left Arm] Automatic Cuff Blood Pressure Position [Left Arm] Sitting 02 Sat by Pulse Oximetry 98 Oxygen Delivery Method Room Air
== END 2023-11-01 08:30 | disposition home or self-care (01) ==
PROVIDERS: Emergency Provider Nurse Practitioner; PCP Family Medicine
DX: L02.415 Cutaneous abscess of right lower limb (principal)
CPT/HCPCS: 99212; 99214; G0463

== ENCOUNTER 2023-11-12 12:01 | Outpatient (CLI) | payer OTHER, SELFPAY ==
--- NOTE | 2023-11-12 12:04 | XR_ITS ---
FINAL REPORT CLINICAL HISTORY: ACUTE COUGH x sev weeks COMPARISON: None FINDINGS: Two views of the chest were obtained. The heart size and pulmonary vascularity are within normal limits. The mediastinum is normal. No acute pulmonary abnormality is identified. There is no pneumothorax. The bony thorax is intact. Postoperative changes are present in the upper thoraces bilaterally. IMPRESSION: No active cardiopulmonary disease. Reviewed, Interpreted and Dictated by Dominic Barkley III, MD Transcribed by Wendy Jerez Authenticated and [facility]
== END 2023-11-12 23:59 ==
LOC: RAD 12:01
PROVIDERS: PCP Family Medicine; Visit Provider Family Medicine
DX: R05.1 Acute cough (principal)
CPT/HCPCS: 71046

== ENCOUNTER 2024-08-18 11:41 | Outpatient (CLI) | payer OTHER, SELFPAY ==
--- NOTE | 2024-08-18 11:47 | XR_ITS ---
FINAL REPORT CLINICAL HISTORY: LBP COMPARISON: none FINDINGS: LUMBOSACRAL SPINE SERIES 5 views of the lumbosacral spine were obtained. There is no fracture present. There is no malalignment. There are no significant degenerative changes. IMPRESSION: No acute process. Reviewed, Interpreted and Dictated by Benny Rodrigues MD Transcribed by Maryam Ruvalcaba Authenticated and . [facility]
== END 2024-08-18 23:59 | disposition home or self-care (01) ==
LOC: RAD 11:43
PROVIDERS: PCP Physician Assistant; Visit Provider Physician Assistant
DX: M54.16 Radiculopathy, lumbar region (principal)
CPT/HCPCS: 72110

== ENCOUNTER 2024-10-28 09:24 | Outpatient (POV) | payer OTHER, SELFPAY ==
[2024-10-28 09:39] VITALS: BP 120/75; PULSE 89; RESP 18; O2SAT 97; BMI 25.7
--- NOTE | 2024-10-28 11:09 | EXP.PAIN.OV ---
HPI Data of Consult Patient: new to practice Consult date: 10/28/24 Requesting Physician: Sue Pena APRN Primary Care Provider: Osmany Gabriel MD Consult Narrative Reason for consult: Low back pain, right leg pain History of present illness: Ms. Diaz is a 39 year old female who presents today as a new patient. She is a referral from Dr. Gabriel's office. Today she rates her pain a 5 out of 10. Patient denies any specific trauma or injury however has been experiencing worsening low back pain that radiates down her entire right leg for several months. Patient does state that August it just seem like it really flared up and was having more of the radicular symptoms with numbness and tingling going down the entire right leg. Patient states that it is constant and interferes with her ability perform activities of daily living such as cooking and cleaning. Patient has tried oral medications including Tylenol and ibuprofen, heat and ice and topicals with minimal relief. Patient has tried the chiropractor with no additional relief. She states that she is going back now currently to physical therapy however has not noticed significant improvement as of right now. Patient describes the pain as an overall aching, throbbing sensation with the burning tingling sensation down. She is interested in any help we may be able to provide. Patient denies any injection history or surgery in the past. Her Jhonathan has been reviewed and is appropriate. CC: Sue Pena APRN [facility] Disclaimer: The information contained in this section may have been updated after the patient was seen, as this information can be updated by other users. Medical History Pneumothorax Hypertension History of anemia Uterine hypertrophy Abnormal vaginal bleeding Surgical History History of section History of cholecystectomy H/O tubal ligation Family History Other Alcoholism Cancer Substance abuse Thyroid disorder Social History (Updated 10/28/24 @ 09:44 by Caryl Sotomayor RN) Smoking Status: Never smoker alcohol intake: never substance use type: denies use current occupational status: employed Travel in the last 8 weeks: None housing: house current occupation: director of [employer] caffeine: Yes Review of Systems Review of Systems Review of systems:: pertinent systems reviewed and negative unless documented below Review of systems (narrative): Review of Systems: General: No recent weight changes, no fever, no sleep disturbances Respiratory: No cough, no shortness of air, no recurring pulmonary infections Cardiovascular/peripheral vascular: No chest pain, no palpitations, no edema, no shortness of breath Gastrointestinal: No new onset incontinence, normal bowel movements reported Genitourinary: No new onset incontinence Musculoskeletal: Low back pain, right leg pain Psychiatric: [Normal mood/affect] Neurological: [Denies weakness in extremities], [denies balance issues] Meds Home Medications and Allergies Home Medications ?Medication ?Instructions ?Recorded ?Confirmed ?Type escitalopram oxalate 5 mg tablet 5 mg PO DAILY 11/01/23 10/28/24 History (Lexapro) valacyclovir 1 gram tablet 1,000 mg PO DAILY #30 tabs 07/19/24 10/28/24 Rx (Valtrex) New Prescriptions to Start Prescriptions: Allergies Allergy/AdvReac Type Severity Reaction Status Date / Time No Known Allergies Allergy Verified 05/05/24 11:31 Objective Vital signs: Pulse Resp BP Pulse Ox O2 Del Method 89 18 120/75 97 Room Air 10/28/24 09:39 10/28/24 09:39 10/28/24 09:39 10/28/24 09:39 10/28/24 09:39 Narrative: Physical Exam: General: Alert and oriented x3, no acute distress, pleasant and cooperative Lungs: Respirations even and unlabored, symmetrical chest expansion Eyes: PERRL Musculoskeletal: Flexion and extension of lumbar [spine] somewhat guarded secondary to pain, [antalgic gait noted] positive right leg raise with decreased sensation to light touch and decreased reflexes Neurological: Speech clear, no gross sensory deficit Additional findings Additional findings: [facility] and open MRI October 07, 2024 Findings: T12-L4 no significant stenosis or narrowing L4-L5: Maintained disc height with shallow disc bulge no narrowing. Mild facet arthrosis L5-S1: Mild disc height loss and asymmetric right disc bulge encroaches upon and possibly contacts the descending S1 nerve roots contributing to mild bilateral foraminal stenosis. No significant spinal stenosis, mild facet arthrosis Assessment and Plan *Assessment and plan (1) Degenerative disc disease: Status: Acute Category: Medical (2) Lumbar radiculopathy: Status: Acute Category: Medical Code(s): M54.16 - Radiculopathy, lumbar region (3) Right leg pain: Status: Acute Category: Medical Code(s): M79.604 - Pain in right leg (4) Lumbar nerve root impingement: Status: Acute Category: Medical Code(s): M54.16 - Radiculopathy, lumbar region Plan Patient is experiencing worsening pain throughout her low back that does radiate down her entire right extremity with numbness and tingling. Patient did have limited range of motion of her lumbar spine with a positive right leg raise and decreased sensation to light touch and decreased reflexes. I did discuss with the patient that I do believe she would benefit from a right transforaminal epidural steroid injection L5-S1. Patient has tried and failed conservative therapy including oral medication, heat and ice, topicals, ongoing physical therapy and continued at home stretching exercise for longer than 12 weeks. Patient will be scheduled for a right transforaminal epidural steroid injection L5-S1 under fluoroscopy. I will also order the patient a compounded cream. Patient has been instructed to contact the clinic with any concerns before the next appointment. Dr. Gaines has reviewed this note and agrees with this plan of care. This note was dictated using voice recognition software and make contain errors or omissions. All injections are used with Lidocaine, Bupivacaine and Depo Medrol. Occasionally urine drug screen is needed to verify patient's compliance with our office pain contract. This is ordered based off specific treatments related to chronic pain with the potential to abuse certain medications.
== END 2024-10-28 23:59 | disposition home or self-care (01) ==
LOC: SC.PAIN 09:25
PROVIDERS: PCP Family Medicine; Visit Provider Nurse Practitioner Family
DX: M51.16 Intervertebral disc disorders with radiculopathy, lumbar region (principal); M79.604 Pain in right leg; Z73.89 Other problems related to life management difficulty
CPT/HCPCS: 99202; 99212; G0463

== ENCOUNTER 2024-11-23 08:53 | Day surgery (SDC) | payer OTHER, SELFPAY ==
[2024-11-23 09:03] VITALS: BP 108/72; PULSE 98; RESP 16; TEMP 36.4; O2SAT 99; BMI 26.1
[2024-11-23 09:34] VITALS: BP 142/58; PULSE 84; RESP 18; O2SAT 99
[2024-11-23 09:35] VITALS: BP 142/58; PULSE 102; RESP 18; O2SAT 99
[2024-11-23] MEDS: IOPAMIDOL-200 (41%);10ML VIAL 10 ML IV (09:37)
[2024-11-23 09:40] VITALS: BP 127/73; PULSE 80; RESP 16; O2SAT 100
--- NOTE | 2024-11-23 09:51 | EXP.PAIN.PRO ---
Procedure Date: 11/23/24 Time: 08:30 Anesthesiologist:: Gagandeep Bower CRNA Complications:: None Pre-procedure Diagnosis:: Degenerative disc lumbar spine multilevels. Lumbar radiculopathy. Lumbar disc bulge L5-S1. Post-procedure Diagnosis:: Same. Indications for Procedure:: Patient is a very pleasant 39-year-old female who comes our clinic today for right L5-S1 transforaminal epidural steroid injection. Patient describes low lumbar back pain off the midline to the right. Right buttock and leg radicular symptoms to the foot. She rates her pain 6/10. Procedure Details:: Details of the procedure explained to the patient. The patient was taken to procedure room placed in the prone position. The area over the lumbar spine was cleansed using chlorhexidine as a cleansing solution. Using fluoroscopy guidance markers were placed over the right border of the L5-S1 vertebral body. At each marker the skin and subcutaneous tissue was anesthetized using 1% lidocaine and a 25-gauge needle. At this time using fluoroscopy guidance 3 and half inch 22-gauge spinal needle was used to access the upper one third of the L5-S1 foramen. Using fluoroscopy guidance in the lateral position needle position was confirmed using 0.5 mL of contrast dye. Good spread was noted in the epidural space at each level. After negative aspiration 2 mL of 1% lidocaine and 40 mg of Depo-Medrol . Patient tolerated procedure without difficulty. There are no complications. Plan and Disposition:: Patient was discharged without incident.
== END 2024-11-23 09:40 | disposition home or self-care (01) ==
LOC: SC.PAINP 08:55
PROVIDERS: PCP Family Medicine; Visit Provider Nurse Anesthetist, Certified Registered
DX: M51.16 Intervertebral disc disorders with radiculopathy, lumbar region (principal)
CPT/HCPCS: 64483; J1010; Q9966

== ENCOUNTER 2024-12-10 10:27 | Outpatient (CLI) | payer OTHER, SELFPAY ==
--- NOTE | 2024-12-10 10:30 | MM_ITS ---
PROCEDURE INFORMATION: Exam: MG Bilateral Screening 3D Mammography Exam date and time: 12/10/2024 10:30 AM Age: 39 years old Clinical indication: Screening examination TECHNIQUE: Imaging protocol: Bilateral Screening tomosynthesis and 2D mammography including computer-aided detection (CAD) when performed. COMPARISON: MG MM DIG SCREENING MAMM BI W/CAD 10/16/2023 8:17 AM FINDINGS: MAMMOGRAPHY: Breast composition: The breasts are heterogeneously dense, which may obscure small masses. Mass: None. Architectural distortion: None. Calcifications: No suspicious calcifications. Asymmetric density: None. Skin thickening: None. Axillary adenopathy: None. IMPRESSION: No mammographic evidence of malignancy. Annual screening is recommended unless otherwise clinically indicated. ASSESSMENT: BI-RADS Category 1: Negative.
== END 2024-12-10 23:59 | disposition home or self-care (01) ==
LOC: RAD 10:27
PROVIDERS: PCP Family Medicine; Visit Provider Nurse Practitioner Obstetrics & Gynecology
DX: Z12.31 Encounter for screening mammogram for malignant neoplasm of breast (principal)
CPT/HCPCS: 77063; 77067

== ENCOUNTER 2024-12-13 10:59 | Outpatient (POV) | payer OTHER, SELFPAY ==
[2024-12-13 11:14] VITALS: BP 108/71; PULSE 76; RESP 18; O2SAT 98; BMI 25.1
--- NOTE | 2024-12-13 11:17 | EXP.PAIN.SOA ---
[facility] Disclaimer: The information contained in this section may have been updated after the patient was seen, as this information can be updated by other users. 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 Today she rates her pain a 0 out of 10. She denies any new trauma or injury. She does state that she had approximately 90% following this injection and rates her pain today a 0 out of 10. Patient does state that that severe pain has completely disappeared. She states she does still have some numbness occasionally but it is nothing like what it was and is very manageable. Her Jhonathan has been reviewed and is appropriate. Review of Systems: General: No recent weight changes, no fever, no sleep disturbances Respiratory: No cough, no shortness of air, no recurring pulmonary infections Cardiovascular/peripheral vascular: No chest pain, no palpitations, no edema, no shortness of breath Gastrointestinal: No new onset incontinence, normal bowel movements reported Genitourinary: No new onset incontinence Musculoskeletal: Low back pain Psychiatric: [Normal mood/affect] Neurological: [Denies weakness in extremities], [denies balance issues] Pain at rest (0-10 scale): 0 Objective Objective:: Physical Exam: General: Alert and oriented x3, no acute distress, pleasant and cooperative Lungs: Respirations even and unlabored, symmetrical chest expansion Eyes: PERRL Musculoskeletal: Flexion and extension of lumbar [spine] within normal limits Neurological: Speech clear, no gross sensory deficit Has patient had previous pain injection?: Yes Percent improvement in pain since last injection: 90% Conservative treatment options previously tried: Home exercise plan Length of treatment: Longer than 12 weeks Meds Home Medications and Allergies Home Medications ?Medication ?Instructions ?Recorded ?Confirmed ?Type escitalopram oxalate 5 mg tablet 5 mg PO DAILY 11/01/23 12/13/24 History (Lexapro) amlodipine 2.5 mg tablet 2.5 mg PO DAILY BLOOD PRESSURE 11/30/24 12/13/24 History atorvastatin 10 mg tablet 10 mg PO DAILY Cholesterol 11/30/24 12/13/24 History cholecalciferol (vitamin D3) 250 250 mcg PO DIRECTED SUPPLIMENT 11/30/24 12/13/24 History mcg (10,000 unit) capsule duloxetine 60 mg capsule,delayed 60 mg PO DAILY MOOD 11/30/24 12/13/24 History release ferrous sulfate 325 mg (65 mg 325 mg PO DIRECTED SUPPLIMENT 11/30/24 12/13/24 History iron) tablet (FeroSul) New Prescriptions to Start Prescriptions: Allergies Allergy/AdvReac Type Severity Reaction Status Date / Time No Known Allergies Allergy Verified 11/30/24 11:13 Assessment and Plan *Assessment and plan (1) Lumbar nerve root impingement: Status: Acute Category: Medical Code(s): M54.16 - Radiculopathy, lumbar region (2) Right leg pain: Status: Acute Category: Medical Code(s): M79.604 - Pain in right leg (3) Lumbar radiculopathy: Status: Acute Category: Medical Code(s): M54.16 - Radiculopathy, lumbar region (4) Degenerative disc disease: Status: Acute Category: Medical Plan Patient has had significant improvement following her lumbar epidural and does not require any additional injection therapy at this time. Patient will return to clinic in 6 weeks for reevaluation of symptoms and plan of care. Patient has been instructed to contact the clinic with any concerns before the next appointment. Dr. Gaines has reviewed this note and agrees with this plan of care. This note was dictated using voice recognition software and make contain errors or omissions. All injections are used with Lidocaine, Bupivacaine and Depo Medrol. Occasionally urine drug screen is needed to verify patient's compliance with our office pain contract. This is ordered based off specific treatments related to chronic pain with the potential to abuse certain medications.
== END 2024-12-13 23:59 | disposition home or self-care (01) ==
LOC: SC.PAIN 11:00
PROVIDERS: PCP Family Medicine; Visit Provider Nurse Practitioner Family
DX: M51.16 Intervertebral disc disorders with radiculopathy, lumbar region (principal); M79.604 Pain in right leg
CPT/HCPCS: 99212; G0463

== ENCOUNTER 2025-04-12 09:38 | Outpatient (CLI) | payer OTHER, SELFPAY ==
--- OUTSIDE RECORDS SUMMARY | 2025-02-22 05:45 | XMS_ITS ---
[facility] Address [address] [place] [id number] Care Team Providers Care Trolley Coach Driver Name Role Phone Yvette Ward Primary Care Provider [phone] Patricia Koehler Unavailable [phone] [place] Unavailable [phone] Allergies No Known Allergies Results Component Value Reference Range Notes CBC Venipuncture (in house) Reviewed date:03/25/2025 02:07:27 PM Interpretation: Performing Lab: Notes/Report: REASON FOR VISIT med check and BW Medications Medication SIG (Take, Route, Frequency, Duration) Notes Start Date End Date Status DULoxetine HCl 60 MG 2 caps orally once a day; Duration: 90 days Active Vitamin D3 250 MCG (90809 UT) TAKE 1 CAPSULE BY MOUTH THREE TIMES A WEEK Orally; Duration: 28 days Active Gabapentin 300 MG 1 capsule Orally Two times a day 08/20/2024 Active ALPRAZolam 0.25 MG 1 tab(s) orally once daily as needed 04/10/2023 Active Atorvastatin Calcium 10 MG Take 1 tablet by mouth once daily; Duration: 90 days Active Ferrous Sulfate 325 (65 Fe) MG 1 tablet Orally once daily; Duration: 30 days Active Problems Problem Type SNOMED Code ICD Code Onset Dates Problem Status W/U Status Risk Notes Problem Anemia (775911586) Anemia, unspecified type (D64.9) Active confirmed Vital Signs Blood pressure systolic 124 mm Hg 02/23/20 25 Blood pressure diastolic 70 mm Hg 025 Heart Rate 92 /min 02/22/2025 Height 69 in 02/22/2025 Weight 157 lbs 02/22/2025 BMI 23.18 kg/m2 02/22/2025 Encounters Encounter Location Date Provider Diagnosis [facility] [address] [facility] [address] [place] [id number] 02/22/2025 Osmany Gabriel Primary hypertension I10 ; Mixed hyperlipidemia E78.2 ; Hypertriglyceridemia E78.1 ; Vitamin D deficiency E55.9 ; Vitamin B12 deficiency E53.8 ; Anemia, unspecified type D64.9 ; Palpitations R00.2 and BMI 23.0-23.9, adult Z68.23 Assessments Encounter Date Diagnosis (ICD Code) Assessment Notes Treatment Notes Treatment Clinical Notes Section Notes 02/22/2025 Primary hypertension (ICD-10 - I10) 02/22/2025 Mixed hyperlipidemia (ICD-10 - E78.2) 02/22/2025 Hypertriglyceridemia (ICD-10 - E78.1) 02/22/2025 Vitamin D deficiency (ICD-10 - E55.9) 02/22/2025 Vitamin B12 deficien cy (ICD-10 - E53.8) 02/22/2025 Anemia, unspecified type (ICD-10 - D64.9) 02/22/2025 Palpitations (ICD-10 - R00.2) 02/22/2025 BMI 23.0-23.9, adult (ICD-10 - Z68.23) Plan Of Treatment Medication Medication Name Sig Start Date Stop Date Notes amLODIPine Besylate 2.5 MG 1 tablet Orally Once a day Pending Test Test Name Order Date P-Vitamin B12 02/22/2025 P-Comprehensive Metabolic Panel (CMP) P-Iron 02/22/2025 P-Lipid Panel 02/22/2025 P-Magnesium 02/22/2025 P-TSH reflex to FT4 02/22/2025 P-Microalbumin/Creatinine, Random Urine Sample 02/22/2025 P-Vitamin D 25-Hydroxy 02/22/2025 Next Appt Details Follow Up: 6 Months, Reason: Provider Name:Osmany giraldo, 04/12/2025 09:00:00 AM, [address] [facility], [address], [place], [id number], Progress Notes * NASIR DAVIS: 3 (39 yo F)Acc No.[id number]:02/22/2025 Progress Notes Patient: CHONG MCKINNEY Provider: Kody Gabriel M.D. :1985 A ge:39 Y S ex:Female Date:02/22/2025 Address:[address] [place] [address] , [place], [id number] Pcp:Yvette Ward Subjective: * Chief Complaints: * 1 . med check and BW. * HPI: C ardiology: 39 year old female presents with c/o Blood Pressure Elevated?Pt here to f/u on hypertension. Pt states she is doing well and does not have any concerns. c/o Hyperlipidemia P t is not fasting today. * ROS: D ERMATOLOGY: no R maria elena. n o H sherif. G ASTROENTEROLOGY: no N ausea. n o V omiting. U ROLOGY: no D ifficulty urinating. n o B lood in urine. * Medical History: O BCP, Dishydrosis, Panic attacks, Mitral Valve prolapse, B12 deficiency, Vitamin D deficiency, Hypertension. * Surgical History: R T Pneumonectomy, s/p Spontaneous Pneumothorax 2000, 2001, [place] Teeth Extracted 05/2009, C Section- [facility] 05/20/2011, C Section - [facility] 05/27/2014, Cholecystectomy 2018. * Hospitalization/Major Diagno stic Procedure: V irus- [facility] ER 11/2012, Abdominal Pains- [facility] ER 11/08/2013, [facility] - Pleurisy- [facility] 10/24/2017, Gall Bladder- [facility] ER 11/21/2018, Sore Throat- [facility] 08/17/2019. * Family History: F ather: alive, Bipolar disorder. M other: alive 64 yrs. P aternal Grand Father: . P aternal Grand Mother: alive. M aternal Grand Father: . M aternal Grand Mother: alive. 1 son(s) . . * Social History: C URRENT TOBACCO USE: No . C affeine: yes, frequency:daily. Exercise: yes. Home smoke detector use: yes. Marital Status: Single. New since last visit: none. 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 Past smoking status: no, Smoking status: Does not smoke. Occup. exposure: none. Recreational drug use: no. Alcohol: no. Sexually active: no.. Travel ouside [place]: no. * Medications: T aking ALPRAZolam 0.25 MG Tablet 1 tab(s) orally once daily as needed , Taking Vitamin D3 250 MCG (56851 UT) Capsule TAKE 1 CAPSULE BY MOUTH THREE TIMES A WEEK Orally , Taking Gabapentin 300 MG Capsule 1 capsule Orally Two times a day , Taking DULoxetine HCl 60 MG Capsule Delayed Release Particles 2 caps orally once a day , Taking Atorvastatin Calcium 10 MG Tablet Take 1 tablet by mouth once daily , Taking amLODIPine Besylate 2.5 MG Tablet 1 tablet Orally Once a day , Taking Ferrous Sulfate 325 (65 Fe) MG Tablet Delayed Release 1 tablet Orally once daily , Medication List reviewed and reconciled with the patient * Allergies: N .K.D.A. Objective: * Vitals: W t: 157, Temp: 98.4, BP: 124/70, HR: 92, Nurse: orville, Ht: 69, BMI:23.18. * Examination: G eneral Examination: General Appearance: N AD. H eart: R SR. L ungs:?clear to auscultation. E xtremities: n o leg edema. Assessment: * Assessment: 1. P rimary hypertension - I10 (Primary) 2 . M ixed hyperlipidemia - E78.2? 3. H ypertriglyceridemia - E78.1 4 . V itamin D deficiency - E55.9 5 . V itamin B12 deficiency - E53.8 6 . A nemia, unspecified type - D64.9 7 . P alpitations - R00.2 8 . B VA 23.0-23.9, adult - Z68.23 Plan: * Treatment: 2. M ixed hyperlipidemia L AB: P-Comprehensive Metabolic Panel (CMP) L AB: P-Lipid Panel L AB: P-TSH reflex to FT4 3. V itamin D deficiency L AB: P-Vitamin D 25-Hydroxy 4. V itamin B12 deficiency L AB: P-Vitamin B12 5. A nemia, unspecified type L AB: P-Iron L AB: CBC Venipuncture (in house) (Collection Date & Time - 03/25/2025) 6.?Palpitations?LAB: P-Magnesium * Procedure Codes: G 8420 BMI<30 AND >=22 CALC & DOCU, G8752 MOST RECENT SYSTOLIC BP < 140MM HG, G8754 MOST RECENT DIASTOLIC BP < 90MM HG, G8950 PREHTN/HTN BP DOC INDCD F/U DOC, 1036F TOBACCO NON-USER * Follow Up: 6 Months * Images: Billing Information: * Visit Code: 91043 Office Visit, Est Pt., Level 4. * Procedure Codes: G8420 BMI<30 AND >=22 CALC & DOCU. G8752 MOST RECENT SYSTOLIC BP < 140MM HG. G8754 MOST RECENT DIASTOLIC BP < 90MM HG. G8950 PREHTN/HTN BP DOC INDCD F/U DOC. 1036F TOBACCO NON-USER. * Electronic signature of Fatoumata Gabriel MD on 04/12/2025 at 09:45 AM EDT Sign off status: Pending * Provider: Kody Gabriel M.D. Date: 0 02/22/2025 Generated for Yuri jang/Km/Mikaitting on: 0 04/12/2025 09:45 AM EDT History and Physical Notes * HPI (History of Present Illness) Category Sub-Category Detail Notes Category Not es Cardiology Blood Pressure Elevated Pt here to f/u on hypertension. Pt states she is doing well and does not have any concerns Hyperlipidemia Pt is not fasting to day Examination Category Sub-Category Detail Notes Category Not es General Examination Heart: RSR Lungs: clear to auscultatio n Extremities: no leg edema General Appearance: NAD
--- OUTSIDE RECORDS SUMMARY | 2025-03-25 05:15 | XMS_ITS ---
Author Organization [facility] Address [address] [place] [id number] Care Team Providers Care Swatch Clerk Name Role Phone Yvette Ward Primary Care Provider Patricia Koehler Unavailable [phone] Osmany Gabriel Unavailable [phone] Results Component Value Reference Range Notes CBC Venipuncture (in house) Reviewed date:03/25/2025 04:21:19 PM Interpretation: Performing Lab: Notes/Report: wbc 5.5 3.5 - 10 lymph 37.5% 15 - 50 mid 6.3% 2 - 15 gran 56.2% 35 - 80 rbc 4.38 3.5 - 5.5 hgb 13.6 11.5 - 16.5 hct 40.5 35 - 55 mcv 92.3 75 - 100 mch 31.2 25 - 35 mchc 33.8 31 - 38 platlet 294 100 - 400 P-Vitamin B12 Reviewed date:03/29/2025 02:38:20 PM Interpretation: Performing Lab: Notes/Report: Test performed by [facility] [address] [place], [place] [address] [place] , [place] [address] Blas Lelsie MD, Coin Machine Servicer Repairer CLIA: [id number] Vitamin B12 637 035-6823 pg/mL P-Comprehensive Metabolic Pa maverick (CMP) Reviewed date:03/29/2025 02:38:20 PM Interpretation: Performing Lab: Notes/Report: Test performed by [facility] [address] [place], [place] [address] [place] , [address], [place] [address] Blas Leslie MD, Coin Machine Servicer Repairer CLIA: [id number] Sodium 142 135-145 mmol/L Potassium 4.2 3.5-5.3 mmol/L Chloride 110 97-108 mmol/L CO2 24 20-32 mmol/L Glucose 86 65-99 mg/dL BUN 6 6-20 mg/dL Creatinine 0.66 0.50-1.00 mg/dL Calcium 9.4 8.6-10.4 mg/dL eGFR by Creatinine 112 >59 mL/min/1.73m2 Protein 6.7 6.0-8.3 g/dL Albumin 4.3 3.5-5.3 g/dL Alkaline Phosphatase 65 35-121 IU/L ALT (SGPT) 11 <5-47 IU/L AST (SGOT) 10 <5-40 IU/L Bilirubin, Total 0.4 <0.2-1.2 mg/dL A/G Ratio 1.8 1.1-2.5 P-Iron Reviewed date:03/29/2025 02:38:20 PM Interpretation: Performing Lab: Notes/Report: Test performed by [facility] [address] [place] [address] , [address], [place] [address] Blas Leslie MD, Coin Machine Servicer Repairer CLIA: [id number] Iron 62 37-145 ug/dL P-Lipid Panel Reviewed date:03/29/2025 02:38:20 PM Interpretation: Performing Lab: Notes/Report: Test performed by [facility] [address] [place] [address] , [address], [place] [address] Blas Leslie MD, Coin Machine Servicer Repairer CLIA: [id number] Cholesterol 180 <200 mg/dL Triglycerides 185 <150 mg/dL HDL Cholesterol 36 >39 mg/dL Cholesterol / HDL Ratio 5.00 0.00-4.44 Ratio Non-HDL Cholesterol 144 <130 mg/dL LDL Cholesterol (Calculation) 107 <130 mg/dL LDL Cholesterol Levels* Less than 100 mg/dL Optimal 100 to 129 mg/dL Near Optimal/ Above Optimal 130 to 159 mg/dL Borderline High 160 to 189 mg/dL High 190 mg/dL and above Very High * Categories as recommended by the 2004 ATPIII guidelines LDL/HDL Ratio 3.0 <3.3 Ratio LDL Cholesterol Patient History Test Date: 03/25/2025 LDL Results: 107 Units: mg/dL % Change: - P-Magnesium Reviewed date:03/29/2025 02:38:20 PM Interpretation: Performing Lab: Notes/Report: Test performed by [employer] , [place] [address] Blas Leslie MD, Coin Machine Servicer Repairer CLIA: [id number] Magnesium 2.3 1.6-2.4 mg/dL P-TSH reflex to FT4 Reviewed date:03/29/2025 02:38:20 PM Interpretation: Performing Lab: Notes/Report: [facility] , [place] [address] Blas Leslie MD, Coin Machine Servicer Repairer CLIA: [id number] TSH reflex to FT4 1.34 0.43-5.25 mU/L P-Microalbumin/Creatinine, R andom Urine Sample Reviewed date:03/29/2025 02:38:20 PM Interpretation: Performing Lab: Notes/Report: Test performed by [facility] [address] , [place] [address] Blas Leslie MD, Coin Machine Servicer Repairer CLIA: [id number] Albumin/Creatinine Ratio, Urine 5 0-30 ug/m g Microalbumin, Urine, Random 1.3 Creatinine, Urine 263.4 P-Vitamin D 25-Hydroxy Reviewed date:03/29/2025 02:38:20 PM Interpretation: Performing Lab: Notes/Report: Test performed by [facility] [address] [place] [address] , [address], [place] [address] Blas Leslie MD, Coin Machine Servicer Repairer CLIA: [id number] Vitamin D 25-Hydroxy 42.0 30.0-100.0 ng/mL Interpretation of Vitamin D 25 OH: < 20 ng/mL - Deficiency 20 - 29 ng/mL - Insufficiency 30 - 100 ng/mL - Sufficiency > 100 ng/mL - Super-therapeutic- toxicity may occur above this level. Clinical correlation required. REASON FOR VISIT blood work Medications Medication SIG (Take, Route, Frequency, Duration) Notes Start Date End Date Status Vitamin D3 250 MCG (79922 UT) TAKE 1 CAPSULE BY MOUTH THREE TIMES A WEEK Orally; Duration: 28 days Active Gabapentin 300 MG 1 capsule Orally Two times a day 08/20/2024 Active Atorvastatin Calcium 10 MG Take 1 tablet by mouth once daily; Duration: 90 days Active DULoxetine HCl 60 MG 2 caps orally once a day; Duration: 90 days Active Ferrous Sulfate 325 (65 Fe) MG 1 tablet Orally once daily; Duration: 30 days Active ALPRAZolam 0.25 MG 1 tab(s) orally once daily as needed 04/10/2023 Active Encounters Encounter Location Date Provider Diagnosis [facility] [address] [facility] [address] [place], [place] [id number] 03/25/2025 Osmany Gabriel Vitamin B12 deficien cy E53.8 ; Vitamin D deficiency E55.9 ; Primary hypertension I10 ; Anemia, unspecified type D64.9 ; Mixed hyperlipidemia E78.2 and Palpitations R00.2 Assessments Encounter Date Diagnosis (ICD Code) Assessment Notes Treatment Notes Treatment Clinical Notes Section Notes 03/25/2025 Vitamin B12 deficiency (ICD-10 - E53.8) 03/25/2025 Vitamin D deficiency (ICD-10 - E55.9) 03/25/2025 Primary hypertension (ICD-10 - I10) 03/25/2025 Anemia, unspecified type (ICD-10 - D64.9) 03/25/2025 Mixed hyperlipidemia (ICD-10 - E78.2) 03/25/2025 Palpitations (ICD-10 - R00.2) Plan Of Treatment Next Appt Details Provider Name:Osmany Rahman ry, 04/12/2025 09:00:00 AM, [address], [address], [place], [id number], Progress Notes * CHONG DAVISDOB: 3 (39 yo F)Acc No.[id number]:03/25/2025 Patient: CHONG MCKINNEY Provider: Kody Gabriel M.D. :1985 A ge:39 Y S ex:Female Date:03/25/2025 Address:[address] [place] [address] , [place], [id number] Pcp:Yvette Ward Subjective: * Chief Complaints: * 1 . Blood work. * Medical History: * Medications: T aking ALPRAZolam 0.25 MG Tablet 1 tab(s) orally once daily as needed , Taking Vitamin D3 250 MCG (29127 UT) Capsule TAKE 1 CAPSULE BY MOUTH THREE TIMES A WEEK Orally , Taking Gabapentin 300 MG Capsule 1 capsule Orally Two times a day , Taking Atorvastatin Calcium 10 MG Tablet Take 1 tablet by mouth once daily , Taking DULoxetine HCl 60 MG Capsule Delayed Release Particles 2 caps orally once a day , Taking Ferrous Sulfate 325 (65 Fe) MG Tablet Delayed Release 1 tablet Orally once daily , Medication List reviewed and reconciled with the patient Objective: * Vitals: Assessment: * Assessment: 1. V itamin B12 deficiency - E53.8 (Primary) 2 . V itamin D deficiency - E55.9 3 . P rimary hypertension - I10 4 . A nemia, unspecified type - D64.9 5 . M ixed hyperlipidemia - E78.2 6 . P alpitations - R00.2 Plan: * Treatment: Value Reference Range V itamin B12 [phone] - pg/mL * Osmany Gabriel 03/28/2025 10:11:06 PM EDT > Lab results are satisfactory, sent to to inform. Rashmi Daniel 03/29/2025 02:38:06 PM EDT > Patient informed of normal results. 2.?Vitamin D deficiency?LAB: P-Vitamin D 25-Hydroxy (Collection Date & Time - 03/25/2025 08:26 AM) * Value Reference Range V itamin D 25-Hydroxy 42.0 30.0-100.0 - ng/mL * Osmany Gabriel Sarah 03/28/2025 10:11:06 PM EDT > Lab results are satisfactory, sent to to inform. Rashmi Daniel 03/29/2025 02:38:06 PM EDT > Patient informed of normal results. 3.?Primary hypertension?LAB: P-Comprehensive Metabolic Panel (CMP) (Collection Date & Time - 03/25/2025 08:26 AM)* Value Reference Range A /G Ratio 1.8 1.1-2.5 - * A lbumin 4.3 3.5-5.3 - g/dL * A lkaline Phosphatase 65 35-121 - IU/L * A LT (SGPT) 11 <5-47 - IU/L * A ST (SGOT) 10 <5-40 - IU/L * B ilirubin, Total 0.4 <0.2-1.2 - mg/dL * B UN 6 6-20 - mg/dL * C alcium 9.4 8.6-10.4 - mg/dL * C hloride 110 H 97-108 - mmol/L * C O2 24 20-32 - mmol/L * C reatinine 0.66 0.50-1.00 - mg/dL * G lucose 86 65-99 - mg/dL * P otassium 4.2 3.5-5.3 - mmol/L * S odium 142 135-145 - mmol/L * P rotein 6.7 6.0-8.3 - g/dL * e GFR by Creatinine 112 >59 - mL/min/1.73m2 * Osmany Gabriel Sarah 03/28/2025 10:11:06 PM EDT > Lab results are satisfactory, sent to to inform. Rashmi Daniel 03/29/2025 02:38:06 PM EDT > Patient informed of normal results. ?LAB: P-Microalbumin/Creatinine, Random Urine Sample (Collection Date & Time - 03/25/2025 08:26 AM)* Value Reference Range A lbumin/Creatinine Ratio, Urine 5 0-30 - ug /mg * C reatinine, Urine 263.4 - mg/dL * M icroalbumin, Urine, Random 1.3 - mg/dL * Osmany Gabriel Sarah 03/28/2025 10:11:06 PM EDT > Lab results are satisfactory, sent to to inform. María Rashmi L 03/29/2025 02:38:06 PM EDT > Patient informed of normal results. 4.?Anemia, unspecified type?LAB: P-Iron (Collection Date & Time - 03/25/2025 08:26 AM)* Value Reference Range I peggy 62 37-145 - ug/dL * [place], Osmany T 03/28/2025 10:11:06 PM EDT > Lab results are satisfactory, sent to to inform. María Rashmi L 03/29/2025 02:38:06 PM EDT > Patient informed of normal results. ?LAB: CBC Venipuncture (in house) (Collection Date & Time - 03/25/2025)* Value Reference Range w bc 5.5 3.5 - 10 * l ymph 37.5% 15 - 50 * m id 6.3% 2 - 15 * g ran 56.2% 35 - 80 * r bc 4.38 3.5 - 5.5 * h gb 13.6 11.5 - 16.5 * h ct 40.5 35 - 55 * m cv 92.3 75 - 100 * m ch 31.2 25 - 35 * m chc 33.8 31 - 38 * p latlet 294 100 - 400 * Elizabeth Hull 03/25/2025 09:44: 59 AM EDT >Osmany Gabriel Sarah 03/25/2025 04:21:13 PM EDT > 5.?Mixed hyperlipidemia?LAB: P-Lipid Panel (Collection Date & Time - 03/25/2025 08:26 AM)* Value Reference Range C holesterol / HDL Ratio 5.00 H 0.00-4.44 - Ratio * C holesterol 180 <200 - mg/dL * H DL Cholesterol 36 L >39 - mg/dL * L DL Cholesterol (Calculation) 107 <130 - mg/d L * L DL/HDL Ratio 3.0 <3.3 - Ratio * N on-HDL Cholesterol 144 H <130 - mg/dL * T riglycerides 185 H <150 - mg/dL * Harvey Osmany Smith 03/28/2025 10:11:06 PM EDT > Lab results are satisfactory, sent to to inform. Rashmi Daniel 03/29/2025 02:38:06 PM EDT > Patient informed of normal results. ?LAB: P-TSH reflex to FT4 (Collection Date & Time - 03/25/2025 08:26 AM)* Value Reference Range T SH reflex to FT4 1.34 0.43-5.25 - mU/L * Harvey Osmany T 03/28/2025 10:11:06 PM EDT > Lab results are satisfactory, sent to to inform. Rashmi Daniel 03/29/2025 02:38:06 PM EDT > Patient informed of normal results. 6.?Palpitations?LAB: P-Magnesium (Collection Date & Time - 03/25/2025 08:26 AM)* Value Reference Range M agnesium 2.3 1.6-2.4 - mg/dL * Harvey Osmnay T 03/28/2025 10:11:06 PM EDT > Lab results are satisfactory, sent to to inform. Rashmi Daniel 03/29/2025 02:38:06 PM EDT > Patient informed of normal results. * Procedure Codes: 8 5025 CBC WITH AUTO DIFF, 63886 VENIPUNCT, ROUTINE* * Images: Billing Information: * Visit Code: * Procedure Codes: 24764 CBC WITH AUTO DIFF. 93015 VENIPUNCT, ROUTINE*. * Electronic signature of Fatoumata Gabriel MD on 04/12/2025 at 09:45 AM EDT Sign off status: Pending * Provider: Kody Gabriel M.D. Date: 0 03/25/2025 Generated for Yuri jang/Km/eTransmitting on: 0 04/12/2025 09:45 AM EDT
--- OUTSIDE RECORDS SUMMARY | 2025-04-12 09:46 | XMS_ITS | Patient Health Record ---
Author Organization [facility] Address [address] [place] [id number] Care Team Providers Care Inspector Penetrant Name Role Phone Yvette Ward Primary Care Provider [phone] Patricia Koehler Unavailable [phone] Osmany Gabriel Unavailable [phone] Shoshana Acevedo Unavailable [phone] Allergies No Known Allergies Results Component Value Reference Range Notes Influenza Screen (in house) Reviewed date:08/09/2024 11:58:55 AM Interpretation: Performing Lab: Notes/Report: results Neg Covid test (in house) Reviewed date:08/09/2024 11:58:47 AM Interpretation: Performing Lab: Notes/Report: Result: Pos CBC Venipuncture (in house) Reviewed date:03/25/2025 02:07:27 PM Interpretation: Performing Lab: Notes/Report: CBC Venipuncture (in house) Reviewed date:03/25/2025 04:21:19 [...] Interpretation: Performing Lab: Notes/Report: Test performed by [facility] [address] [place] [address] , [address], [place] [address] Blas Leslie MD, Roving Changer CLIA: [id number] Vitamin B12 551 808-8410 pg/mL P-Comprehensive Metabolic Pa maverick (CMP) Reviewed date:03/29/2025 02:38:20 PM Interpretation: Performing Lab: Notes/Report: Test performed by [facility] [address] [place] [address] , [address], [place] [address] Blas Leslie MD, Roving Changer CLIA: [id number] Sodium 142 135-145 mmol/L Potassium 4.2 3.5-5.3 [...] Interpretation: Performing Lab: Notes/Report: Test performed by [facility] [address] [place] [address] , [place] [address] Blas Leslie MD, Roving Changer CLIA: [id number] Iron 62 37-145 ug/dL P-Lipid Panel Reviewed date:03/29/2025 02:38:20 PM Interpretation: Performing Lab: Notes/Report: Test performed by [facility] [address] [place] [address] , [address], [place] [address] Blas Leslie MD, Roving Changer CLIA: [id number] Cholesterol 180 <200 mg/dL Triglycerides 185 <150 [...] Interpretation: Performing Lab: Notes/Report: Test performed by [facility] [address] [place] [address] , [place] [address] Blas Leslie MD, Roving Changer CLIA: [id number] Magnesium 2.3 1.6-2.4 mg/dL P-TSH reflex to FT4 Reviewed date:03/29/2025 02:38:20 PM Interpretation: Performing Lab: Notes/Report: Test performed by [facility] [address] [place] [address] , [place] [address] Blas Leslie MD, Roving Changer CLIA: [id number] TSH reflex to FT4 1.34 0.43-5.25 mU/L P-Microalbumin/Creatinine, R andom Urine Sample Reviewed date:03/29/2025 02:38:20 PM Interpretation: Performing Lab: Notes/Report: Test performed by [facility] [address] [place] [address] , [address], [place] [address] Blas Leslie MD, Roving Changer CLIA: [id number] Albumin/Creatinine Ratio, Urine 5 0-30 ug/m g Microalbumin, Urine, Random 1.3 Creatinine, Urine 263.4 P-Vitamin D 25-Hydroxy Reviewed date:03/29/2025 02:38:20 PM Interpretation: Performing Lab: Notes/Report: Test performed by [facility] [address] , [address], [place] [id number] Blas Leslie MD, Roving Changer CLIA: [id number] Vitamin D 25-Hydroxy 42.0 30.0-100.0 ng/mL Interpretation of Vitamin D 25 [place]: < 20 ng/mL - Deficiency 20 - 29 ng/mL - Insufficiency 30 - 100 ng/mL - Sufficiency > 100 ng/mL - Super-therapeutic- toxicity may occur above this level. Clinical correlation required. X ray : Spine, lumbosacral Reviewed date:08/19/2024 09:21:36 AM Interpretation: Performing Lab: Notes/Report: P-Vitamin D 25-Hydroxy Reviewed date:08/06/2024 01:03:38 PM Interpretation: Performing Lab: Notes/Report: Test performed by [facility] [address] , [address], [place] [address] Blas Leslie MD, Roving Changer CLIA: [id number] Vitamin D 25-Hydroxy 41.9 30.0-100.0 ng/mL Interpretation of Vitamin D 25 [place]: < 20 ng/mL - Deficiency 20 - 29 ng/mL - Insufficiency 30 - 100 ng/mL - Sufficiency > 100 ng/mL - Super-therapeutic- toxicity may occur above this level. Clinical correlation required. P-Lipid Panel Reviewed date:08/06/2024 01:03:38 PM Interpretation: Performing Lab: Notes/Report: Test performed by [facility] [address] , [address], [place] [address] Blas Leslie MD, Roving Changer CLIA: [id number] Cholesterol 236 <200 mg/dL Triglycerides 162 <150 mg/dL HDL Cholesterol 48 >39 mg/dL Cholesterol / HDL Ratio 4.92 0.00-4.44 Ratio Non-HDL Cholesterol 188 <130 mg/dL LDL Cholesterol (Calculation) 156 <130 mg/dL LDL Cholesterol Levels* Less than 100 mg/dL Optimal 100 to 129 mg/dL Near Optimal/ Above Optimal 130 to 159 mg/dL Borderline High 160 to 189 mg/dL High 190 mg/dL and above Very High * Categories as recommended by the 2004 ATPIII guidelines LDL/HDL Ratio 3.2 <3.3 Ratio LDL Cholesterol Patient History Test Date: 08/05/2024 LDL Results: 156 Units: mg/dL % Change: - P-Iron Reviewed date:08/06/2024 01:03:38 PM Interpretation: Performing Lab: Notes/Report: Test performed by [facility] [address] , [address], [place] [address] Blas Leslie MD, Roving Changer CLIA: [id number] Iron 76 37-145 ug/dL P-Comprehensive Metabolic Pa maverick (CMP) Reviewed date:08/06/2024 01:03:38 PM Interpretation: Performing Lab: Notes/Report: Test performed by [facility] [address] [place] [address] , [place] [address] Blas Leslie MD, Roving Changer CLIA: [id number] Sodium 140 135-145 mmol/L Potassium 4.3 3.5-5.3 mmol/L Chloride 104 97-108 mmol/L CO2 26 22-32 mmol/L Glucose 95 65-99 mg/dL BUN 9 6-20 mg/dL Creatinine 0.75 0.50-1.00 mg/dL Calcium 9.7 8.6-10.4 mg/dL eGFR by Creatinine 102 >59 mL/min/1.73m2 Protein 7.5 6.0-8.3 g/dL Albumin 4.4 3.5-5.3 g/dL Alkaline Phosphatase 76 35-121 IU/L ALT (SGPT) 15 <5-47 IU/L AST (SGOT) 13 <5-40 IU/L Bilirubin, Total 0.3 <0.2-1.2 mg/dL A/G Ratio 1.4 1.1-2.5 P-Vitamin B12 Reviewed date:08/06/2024 01:03:37 PM Interpretation:low normal Performing Lab: Notes/Report: Test performed by [facility] [address] [place] [address] , [address], [place] [id number] Blas Leslie MD, Roving Changer CLIA: [id number] Vitamin B12 135 714-5796 pg/mL Influenza Screen (in house) Reviewed date:07/28/2024 11:14:50 AM Interpretation: Performing Lab: Notes/Report: results Neg CBC Fingerstick (in house) Reviewed date:07/28/2024 11:21:07 AM Interpretation: Performing Lab: Notes/Report: wbc 12.6 3.5 - 10 lym 26.0% 15 - 50 mid 6.8% 2 - 15 gran 67.2% 35 - 80 rbc 4.44 3.5 - 5.5 hgb 13.2 11.5 - 16.5 hct 38.7 35 - 55 mcv 87.1 75 - 100 mch 29.8 25 - 35 mchc 34.2 31 - 38 plat 249 100 - 400 Covid test (in house) Reviewed date:07/28/2024 11:15:24 AM Interpretation: Performing Lab: Notes/Report: Result: Neg MRI : Spine, Lumbosacral, wi thout contrast Reviewed date:10/09/2024 12:07:04 PM Interpretation:Abnormal Performing Lab: Notes/Report: Abnormal Medications Medication SIG (Take, Route, Frequency, Duration) Notes Start Date End Date Status Vitamin D3 250 MCG (39577 UT) TAKE 1 CAPSULE BY MOUTH THREE TIMES A WEEK Orally; Duration: 28 days Active ALPRAZolam 0.25 MG 1 tab(s) orally once daily as needed 04/10/2023 Active Ferrous Sulfate 325 (65 Fe) MG 1 tablet Orally once daily; Duration: 30 days Active DULoxetine HCl 60 MG 2 caps orally once a day; Duration: 90 days Active Atorvastatin Calcium 10 MG Take 1 tablet by mouth once daily; Duration: 90 days Active Gabapentin 300 MG 1 capsule Orally Two times a day 08/20/2024 Active Immunizations Vaccine Route Administration Date Status Comme nts COVID 19 Bib Unknown 11/08/2020 Administered flucelvax Unknown 05/20/2017 Administered Fluzone PF Quad (6-35 months) Unknown 05/20/2018 Administered Fluzone PF Quad (6-35 months) Unknown 05/27/2020 Administered Fluzone Quad (6months&older) Unknown 05/20/2018 Administered Fluzone Quad (6months&older) IM Intramuscular 05/27/2020 Administered Hepatitis A (adult) Unknown 08/13/2018 Administered ppd TD Transdermal 04/27/2009 Administered Tetanus-DT Unknown 11/17/2018 Administered xFlu shot-36 months and older IM Intramuscular 07/05/2008 Administered xFlu shot-36 months and older IM Intramuscular 04/29/2009 Administered xFlu shot-36 months and older IM Intramuscular 06/05/2011 Administered xFluzone Intradermal (18-64yrs)-trivalent ID Intradermal 05/25/2012 Administered Problems Problem Type SNOMED Code ICD Code Onset Dates Problem Status W/U Status Risk Notes Problem Vitamin D deficiency (82035491) Vitamin D deficiency (E55.9) Active confirmed Problem Vitamin B12 deficiency (680920059) Vitamin B12 deficiency (E53.8) Active confirmed Problem Hypertriglyceridemia (818973756) Hypertriglyceridemia (E78.1) Active confirmed Problem Arthropathy of lumba r facet joint (710212884) Lumbar facet arthropathy (M47.816) Active confirmed Problem Mixed anxiety and depressive disorder (135663312) Depression with anxiety (F41.8) Active confirmed Problem Mixed hyperlipidemia (090901744) Mixed hyperlipidemia (E78.2) Active confirmed Problem Absence of lung (628102033) Acquired 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.2) Active confirmed Problem Anemia (975589118) Anemia, unspe cified type (D64.9) Active confirmed Problem Sciatica (75931908) Acute right- sided low back pain with right-sided sciatica (M54.41) Active confirmed Problem History of iron deficiency (636644408) History of iron deficiency (Z86.39) Active confirmed Problem Generalized anxiety disorder (16395059) BRIGITTE (generalized anxiety disorder) (F41.1) Active confirmed Problem Lumbar radiculopathy (861144587) Lumbar back pain with radiculopathy affecting right lower extremity (M54.16) Active confirmed Problem Primary hypertension (28057934) Primary hypertension (I10) Active confirmed Vital Signs Heart Rate 122 /min 04/12/2025 Blood pressure diastolic 78 mm Hg 04/12/2025 Height 69 in 04/12/2025 Blood pressure systolic 122 mm Hg 04/12/2025 Weight 145.4 lbs 04/12/2025 BMI 21.47 kg/m2 04/12/2025 Encounters Encounter Location Date Provider Diagnosis [facility] [address] [facility] [address] [id number] 07/28/2024 Shoshana Acevedo Acute URI J06.9 ; St rain of right calf muscle S86.811A ; Vitamin B12 deficiency E53.8 ; Vitamin D deficiency E55.9 ; Mixed hyperlipidemia E78.2 and Iron deficiency E61.1 [facility] [address] [facility] [address] [id number] 08/05/2024 Shoshanabibiana Acevedo Vitamin D deficiency E55.9 ; History of iron deficiency Z86.39 ; Vitamin B12 deficiency E53.8 ; Primary hypertension I10 and Hypertriglyceridemia E78.1 [facility] [address] [facility] [address] [id number] 08/09/2024 Osmany Gabriel COVID-19 U07.1 [facility] [address] [facility] [address] [place], [place] [id number] 08/12/2024 Shoshana Crowdy Lumbar back pain wit h radiculopathy affecting right lower extremity M54.16 [facility] [address] [place], [place] [id number] 08/18/2024 Shoshana Crowdy Lumbar back pain wit h radiculopathy affecting right lower extremity M54.16 and Right leg weakness R29.898 [facility] [address] [place], [place] [id number] 09/06/2024 Osmany Eighty Eight [facility] [address] [place], [place] [id number] 09/13/2024 Osmany [facility] Acute right-sided lo w back pain with right-sided sciatica M54.41 [facility] [address] [place], [place] [id number] 02/22/2025 Osmany [employer] Primary hypertension I10 ; Mixed hyperlipidemia E78.2 ; Hypertriglyceridemia E78.1 ; Vitamin D deficiency E55.9 ; Vitamin B12 deficiency E53.8 ; Anemia, unspecified type D64.9 ; Palpitations R00.2 and BMI 23.0-23.9, adult Z68.23 [facility] [address] [place], [place] [id number] 03/25/2025 Osmany [employer] Vitamin B12 deficien cy E53.8 ; Vitamin D deficiency E55.9 ; Primary hypertension I10 ; Anemia, unspecified type D64.9 ; Mixed hyperlipidemia E78.2 and Palpitations R00.2 [facility] [address] [place], [place] [id number] 04/12/2025 Osmany [employer] Acute diarrhea R19.7 ; Dark yellow-colored urine R39.89 and Dehydration E86.0 [facility] [address] [facility] [address] [place], [place] [id number] 08/06/2024 Shoshana Crowdy [facility] [address] [place], [place] [id number] 08/11/2024 Shoshana Crowdy [facility] [address] [place] [id number] 08/19/2024 Shoshana Crowdy Lumbar back pain wit h radiculopathy affecting right lower extremity M54.16 and Right leg weakness R29.898 [facility] [address] [facility] [address] [place], [place] [id number] 08/19/2024 Shoshana Crowdy Lumbar back pain wit h radiculopathy affecting right lower extremity M54.16 [facility] [address] [place], [place] [id number] 08/20/2024 Osmany [employer] [facility] [address] [facility] [address] [place], [place] [id number] 09/23/2024 Osmany [employer] [facility] [address] [facility] [address] [place] [id number] 10/01/2024 Osmany [employer] [facility] [address] [place], [place] [id number] 10/19/2024 Osmany [employer] Acute right-sided lo w back pain with right-sided sciatica M54.41 ; Degeneration of intervertebral disc of lumbar region with discogenic back pain and lower extremity pain M51.362 and Lumbar facet arthropathy M47.816 [facility] [address] [facility] [address] [place], [place] [id number] 10/22/2024 Osmany [employer] Lumbar back pain wit h radiculopathy affecting right lower extremity M54.16 ; Lumbar facet arthropathy M47.816 and Bulging lumbar disc M51.369 [facility] [address] [facility] [address] [place] [id number] 01/18/2025 Yvette Ward [facility] [address] [facility] [address] [place], [place] [id number] 03/14/2025 Yvette Ward [facility] [address] [facility] [address] [place], [place] [id number] 08/09/2024 Patricia Koehler Assessments Encounter Date Diagnosis (ICD Code) Assessment Notes Treatment Notes Treatment Clinical Notes Section Notes 07/28/2024 Acute URI (ICD-10 - J06.9) Has cough medication at home. 07/28/2024 Strain of right calf muscle (ICD-10 - S86.811A) Gave exercises to do and can take motrin. She states she got a new car it is is harder to push the pedal and she had had to do a lot of driving lately. 08/09/2024 COVID-19 (ICD-10 - U07.1) 08/12/2024 Lumbar back pain wit h radiculopathy affecting right lower extremity (ICD-10 - M54.16) Will rest and gently stretch. If no improvement, will need x-rays. 08/18/2024 Right leg weakness (ICD-10 - R29.898) 08/18/2024 Lumbar back pain wit h radiculopathy affecting right lower extremity (ICD-10 - M54.16) Will get an x-ray. Will likely need an MRI. 08/19/2024 Right leg weakness (ICD-10 - R29.898) 08/19/2024 Lumbar back pain wit h radiculopathy affecting right lower extremity (ICD-10 - M54.16) 08/19/2024 Lumbar back pain wit h radiculopathy affecting right lower extremity (ICD-10 - M54.16) 09/13/2024 Acute right-sided lo w back pain with right-sided sciatica (ICD-10 - M54.41) Continue physical therapy. Patient has shown minimal improvement. She will call with a progress report next week 10/19/2024 Acute right-sided lo w back pain with right-sided sciatica (ICD-10 - M54.41) 10/19/2024 Degeneration of intervertebral disc of lumbar region with discogenic back pain and lower extremity pain (ICD-10 - M51.362) 10/22/2024 Lumbar back pain wit h radiculopathy affecting right lower extremity (ICD-10 - M54.16) 02/22/2025 Mixed hyperlipidemia (ICD-10 - E78.2) 02/22/2025 Primary hypertension (ICD-10 - I10) 03/25/2025 Vitamin D deficiency (ICD-10 - E55.9) 03/25/2025 Vitamin B12 deficien cy (ICD-10 - E53.8) 04/12/2025 Acute diarrhea (ICD- 10 - R19.7) 04/12/2025 Dark yellow-colored urine (ICD-10 - R39.89) 03/25/2025 Primary hypertension (ICD-10 - I10) 04/12/2025 Dehydration (ICD-10 - E86.0) To infusion for IV fluids and labs 02/22/2025 Hypertriglyceridemia (ICD-10 - E78.1) 10/22/2024 Lumbar facet arthrop athy (ICD-10 - M47.816) 07/28/2024 Vitamin B12 deficien cy (ICD-10 - E53.8) Will come back fasting one am to check labs. 10/19/2024 Lumbar facet arthrop athy (ICD-10 - M47.816) 08/05/2024 Vitamin D deficiency (ICD-10 - E55.9) 07/28/2024 Vitamin D deficiency (ICD-10 - E55.9) 08/05/2024 History of iron deficiency (ICD-10 - Z86.39) 10/22/2024 Bulging lumbar disc (ICD-10 - M51.369) 02/22/2025 Vitamin D deficiency (ICD-10 - E55.9) 03/25/2025 Anemia, unspecified type (ICD-10 - D64.9) 03/25/2025 Mixed hyperlipidemia (ICD-10 - E78.2) 02/22/2025 Vitamin B12 deficien cy (ICD-10 - E53.8) 07/28/2024 Mixed hyperlipidemia (ICD-10 - E78.2) 08/05/2024 Vitamin B12 deficien cy (ICD-10 - E53.8) 03/25/2025 Palpitations (ICD-10 - R00.2) 02/22/2025 Anemia, unspecified type (ICD-10 - D64.9) 08/05/2024 Primary hypertension (ICD-10 - I10) 07/28/2024 Iron deficiency (ICD -10 - E61.1) 02/22/2025 Palpitations (ICD-10 - R00.2) 08/05/2024 Hypertriglyceridemia (ICD-10 - E78.1) 02/22/2025 BMI 23.0-23.9, adult (ICD-10 - Z68.23) Plan Of Treatment Pending Test Test Name Order Date H-CBC 04/12/2025 H-CMP 04/12/2025 P-Vitamin B12 02/22/2025 P-Comprehensive Metabolic Panel (CMP) P-Iron 02/22/2025 P-Lipid Panel 02/22/2025 P-Magnesium 02/22/2025 P-TSH reflex to FT4 02/22/2025 P-Microalbumin/Creatinine, Random Urine Sample 02/22/2025 P-Vitamin D 25-Hydroxy 02/22/2025 Next Appt Details Provider Name:Osmany Cartwrighttiffany ry, 04/12/2025 09:00:00 AM, [address], [place], [id number], Insurance Providers Payer Name Payer Address Payer Phone Subscriber Number Group Number Insured Name Patient Relationship to Insured Coverage Start Date Coverage End Date [facility] [address] [place], [place] [id number] CHONG Diaz Self - patient is the insured Medications Administered Medication Instructions Date of Administration Dosage Notes B-12 09/29/2008 1 mL needs weekly B 12 x4 then monthly B-12 10/05/2008 B-12 10/14/2008 1mL B-12 10/21/2008 1 mL B-12 11/02/2008 1 mL B-12 12/07/2008 1mL B-12 01/04/2009 1 mL B-12 01/31/2009 1 mL B-12 03/03/2009 1 mL B-12 04/07/2009 1 mL B-12 04/29/2009 B-12 06/10/2009 B-12 07/01/2009 1 mL B-12 07/31/2009 B-12 12/11/2009 1 mL B-12 02/13/2010 1 mL B-12 04/30/2010 1 mL B-12 09/10/2010 B-12 11/07/2011 1 mL B-12 11/19/2011 1 mL B-12 11/25/2011 1 mL B-12 12/17/2011 B-12 01/07/2012 1 mL B-12 01/20/2012 1 mL B-12 02/19/2012 1 mL B-12 03/27/2012 B-12 04/27/2012 B-12 05/29/2012 1.0 B-12 06/25/2012 B-12 07/27/2012 B-12 09/28/2012 B-12 11/07/2012 1 mL B-12 01/02/2013 B-12 02/05/2013 B-12 05/19/2013 1 mL Bicillin LA 1,200,000 09/06/2005 2 mL Depo- Medrol 40 mg/ml 08/12/2024 1.5 mL Dexamethasone 11/25/2009 1 mL Medical (General) History Medical History History ICD Code OBCP Dishydrosis Panic attacks Mitral Valve prolapse B12 deficiency Vitamin D deficiency Hypertension Surgical History Surgery Date(Month/Year) RT Pneumonectomy, s/p Spontaneous Pneumo thorax 2000, 2001 [place] Teeth Extracted 05/2009 C Section- [facility] 05/20/2011 C Section - [facility] 05/27/2014 Cholecystectomy 2019 Hospitalization History Reason Date(Month/Year) Sore Throat- [facility] 08/17/2019 Gall Bladder- [facility] 11/21/2018 [facility] - Pleurisy- [facility] 10/24/2017 Abdominal Pains- [facility] 11/08/2013 Virus- [facility] 11/2012
[2025-04-12 10:00] VITALS: BP 127/77; PULSE 70; RESP 18; TEMP 36.8; O2SAT 99
[2025-04-12] MEDS: 0.9 % SODIUM CHLORIDE 1000ML 2,000 ML 999 ML IV (10:00)
[2025-04-12 10:06] LABS: Hematocrit 41.8 % (37.0-47.0); Hemoglobin 14.4 g/dL (12.2-16.2); Immature Granulocytes % 0.1 %; Mean Corpuscular HGB Conc 34.4 g/dL (31.8-35.4); Mean Corpuscular Hemoglobin 31.1 pg (27.0-31.2); Mean Corpuscular Volume 90.3 fl (81-99); Nucleated Red Blood Cells % 0 %; Platelet Count 301 K/mm3 (142-424); Red Blood Count 4.63 M/mm3 (4.20-5.40); Red Cell Distribution Width-SD 38.9 fL; White Blood Count 8.8 K/mm3 (4.8-10.8)
[2025-04-12 10:16] LABS: Albumin Level 5.0 g/dl (3.5-5.0); Chloride 102 mmol/L (98-107); Sodium 140 mmol/L (136-145)
[2025-04-12 10:17] LABS: Potassium 3.8 mmoL/L (3.5-5.1)
[2025-04-12 10:19] LABS: Alanine Aminotransferase 14 U/L (12-78); Anion Gap 16.8 mEq/L (5-15); Aspartate Amino Transferase 20 U/L (14-36); Blood Urea Nitrogen 9 mg/dl (7-17); Carbon Dioxide 25 mmol/L (22.0-30.0); Creatinine,Serum 0.60 mg/dl (0.52-1.04); Estimated Glomerular Filt Rate 110 ml/min (>60); GFR (African American) 133 ML/MIN (>60)
[2025-04-12 10:20] LABS: Albumin/Globulin Ratio 1.5 (1.1-1.8); Alkaline Phosphatase 80 U/L (38-126); Bilirubin,Total 0.7 mg/dl (0.2-1.3); Calcium 10.3 mg/dl (8.4-10.2); Globulin 3.4 g/dL (1.3-3.2); Glucose 97 mg/dl (74-100); Total Protein,Serum 8.4 g/dl (6.3-8.2)
[2025-04-12 11:00] VITALS: BP 124/72; PULSE 76; O2SAT 98
[2025-04-12 12:03] VITALS: BP 131/68; PULSE 73
== END 2025-04-12 12:10 | disposition home or self-care (01) ==
LOC: INF 09:42
PROVIDERS: PCP Family Medicine; Visit Provider Family Medicine
DX: E86.0 Dehydration (principal)
CPT/HCPCS: 80053; 85025; 96360; 96361; J7030